=== PATIENT | female | born 1940 | race Caucasian/White ===

== ENCOUNTER 2020-04-16 16:35 | Emergency (ER) | payer MEDICARE, SELFPAY ==
[2020-04-16 16:52] VITALS: BP 145/76; PULSE 64; RESP 18; TEMP 36.6; O2SAT 94; BMI 31.8
--- NOTE | 2020-04-16 19:12 | XRR_ITS ---
PROCEDURE INFORMATION: Exam: XR Right Knee Exam date and time: 04/16/2020 7:57 PM Age: 80 years old Clinical indication: Injury or trauma; Fall; Initial encounter; Blunt trauma; Right; Injury details: PT fell; Prior surgery; Surgery date: 6+ months; Surgery type: Knee replacement; Patient HX: Fell; C/O pain RT knee TECHNIQUE: Imaging protocol: XR Right knee. Views: 3 views. COMPARISON: No relevant prior studies available. FINDINGS: Bones/joints: Patient is status post knee arthroplasty with near anatomical alignment of the prosthesis. No paralleling lucencies about the femoral or tibial component to suggest loosening. No acute fracture or dislocation. Soft tissues: Normal. Other findings: Spacer. XR/XR knee RT 3V* [id number] IMPRESSION: 1. Status post knee arthroplasty. 2. No paralleling lucencies about the femoral or tibial component to suggest loosening. 3. No acute fracture or dislocation.
--- NOTE | 2020-04-16 19:22 | ED_ITS ---
HPI - Extremity Problem General: Chief complaint: Extremity Injury, Lower Stated complaint: back pain Time Seen by Provider: 04/16/20 19:12 Source: patient Mode of arrival: ambulatory Limitations: no limitations History of Present Illness: HPI Narrative: 80-year-old female who states she is been having some low back pain that radiates down her leg on the right side over the last week. States it feels like water running down her leg. She also has a history of knee problems in the past with a joint placement states that her knee is giving out a couple times. She denies any bowel or bladder incontinence and denies any saddle anesthesia. She states her pain is sharp in nature and rates it a 2 out of 10. Denies any worsening or improving factors. Associated symptoms: Deny chest pain, fever(s) or rash Review of Systems Const: Denies: fever(s), chills, body aches or change in appetite Eyes: Denies: blurry vision or eye discomfort ENMT: Denies: throat pain or dental pain Card: Denies: chest pain Resp: Denies: dyspnea GI: Denies: abdominal pain, nausea, vomiting or diarrhea : Denies: dysuria Musc: Denies: neck pain or back pain Skin/Breast: Denies: rash Neuro: Denies: headache(s) Psych: Denies: depression Jose/Lymph: Denies: easy bruising All/Imm: Denies: urticaria PFSH ED PFSH: Medical History Atherosclerosis Atherosclerosis of coronary artery of [place] heart without angina pectoris History of DVT (deep vein thrombosis) History of non-ST elevation myocardial infarction (NSTEMI) HTN (hypertension) Hyperlipidemia Surgical History S/P blepharoplasty S/P cataract extraction S/P cholecystectomy S/P hysterectomy S/P knee replacement S/P lumpectomy of breast S/P shoulder surgery Family History Brother Hypertension Diabetes Mother Cancer Sister Cancer Social History Smoking and tobacco status: former smoker Physical Exam Const: COMMON NORMALS: no acute distress, patient oriented x3 and healthy appearing HENMT: COMMON NORMALS: normocephalic and atraumatic HEAD & SCALP: normocephalic and atraumatic Eye: COMMON NORMALS: Equal, round and reactive pupils present and EOMs intact bilaterally PUPIL: Yes Equal, round and reactive pupils present Neck/C-Spine: COMMON NORMALS: full ROM and supple Chest: COMMONS NORMALS: normal inspection of the chest and normal palpation of entire chest wall Resp: COMMON NORMALS: normal respiratory effort, No retractions, No use of accessory muscles and clear to auscultation bilaterally AUSCULTATION: clear to auscultation bilaterally Cardio: COMMON NORMALS: regular rate, regular rhythm and No murmurs present (Cardio) RATE: regular rate RHYTHM: regular rhythm GI: COMMON NORMALS: Normal to inspection, nondistended, normoactive bowel sounds present, Soft to palpation, non-tender and no masses PALPATION: Yes Soft to palpation Back/Pelvis: OTHER: No midline back tenderness. Patient has no weakness in her lower extremities and no saddle anesthesia. Extremity: COMMON NORMALS: normal to inspection and full ROM Neuro: COMMON NORMALS: patient oriented x3, moves all extremities and no focal motor deficits Psych: COMMON NORMALS: mental status grossly normal, Normal thought process present and cooperative THOUGHT PROCESS: Normal thought process present Skin: COMMON NORMALS: no rashes or lesions noted and no wounds GENERAL SKIN EXAM: no rashes or lesions noted Course Vital Signs: Vital signs: Vital Signs Temperature 97.9 F 04/16/20 16:52 Pulse Rate 73 04/16/20 21:28 Respiratory Rate 14 04/16/20 21:28 Blood Pressure 176/70 04/16/20 21:28 Pulse Oximetry 92 04/16/20 21:28 MDM - Extremity (Nontraumatic) MDM Narrative: Medical decision making narrative: Patient presents with back pain with some signs of sciatica. Patient given Decadron here. CT showed no acute findings she has no signs of cord compression or epidural abscess. She is to follow-up with her PCP in 2 to 3 days and return to ER if worsening. She understands and agrees to this plan. Imaging Data^: ct l spine: Attestation: I personally reviewed and interpreted this imaging study as follows: Radiologist's impression: [address] [address] [address] Scan Report Signed Patient: Flakita Sutherland Unit #: [id number] : 1940 Age/Sex: 80 / F ADM Date: 04/16/20 Loc: ER Room/Bed: Attending Dr: Ordering Provider/Ordering MD: Carmen Salguero MD Date of Service: 04/16/20 Procedure(s): CT lumbar spine wo con* [id number] Accession Number(s): [id number] Report Number: [id number] PROCEDURE INFORMATION: Exam: CT Lumbar Spine Without Contrast Exam date and time: 04/16/2020 8:09 PM Age: 80 years old Clinical indication: Injury or trauma; Fall; Initial encounter; Blunt trauma (contusions or hematomas); Additional info: Pain TECHNIQUE: Imaging protocol: Computed tomography images of the lumbar spine without contrast. Radiation optimization: All CT scans at this facility use at least one of these dose optimization techniques: automated exposure control; mA and/or kV adjustment per patient size (includes targeted exams where dose is matched to clinical indication); or iterative reconstruction. COMPARISON: CR XR lumbar spine min 4V [id number] 03/14/2020 1:42 PM RADIATION DOSE METRICS: Total DLP (mGy-cm): 2238.95 FINDINGS: Vertebrae: The vertebral body stature is maintained. Degenerative anterior subluxation of L4 on L5. Disc space narrowing is severe at L5-S1, moderate at L2-L3, and mild at the other levels. The facets are intact with hypertrophic degenerative changes. L1-L2: At L1-L2 there is a disc bulge. Degenerative facets. Mild left and moderate right foraminal stenosis. Mild central canal stenosis. L2-L3: Disc bulge at L2-L3 with degenerative facets. Mild left and moderate right foraminal stenosis. Mild central canal stenosis. L3-L4: Mild disc bulge at L3-L4 with degenerative facets. Mild left and severe right foraminal stenosis. Severe central canal stenosis. L4-L5: Disc bulge at L4-L5. Degenerative facets. Mild bilateral foraminal stenosis. Moderate central canal stenosis. L5-S1: Small disc bulge at L5-S1. Mild bilateral foraminal stenosis. No central canal stenosis. Sacrum/coccyx: Partial lumbarization of S1. Soft tissues: Unremarkable. CT/CT lumbar spine wo con* [id number] IMPRESSION: 1. No compression fracture or acute finding. 2. Multilevel degenerative changes. ct t spine: Attestation: I personally reviewed and interpreted this imaging study as follows: Radiologist's impression: [facility] [address] [place] [address] CT Scan Report Signed Patient: Flakita Sutherland Unit #: [id number] : 1940 Age/Sex: 80 / F ADM Date: 04/16/20 Loc: ER Room/Bed: Attending Dr: Ordering Provider/Ordering MD: Carmen Salguero MD Date of Service: 04/16/20 Procedure(s): CT thoracic spin wo con* [id number] Accession Number(s): [id number] Report Number: [id number] PROCEDURE INFORMATION: Exam: CT Thoracic Spine Without Contrast Exam date and time: 04/16/2020 8:09 PM Age: 80 years old Clinical indication: Injury or trauma; Fall; Initial encounter; Blunt trauma (contusions or hematomas); Additional info: Pain TECHNIQUE: Imaging protocol: Computed tomography images of the thoracic spine without contrast. Radiation optimization: All CT scans at this facility use at least one of these dose optimization techniques: automated exposure control; mA and/or kV adjustment per patient size (includes targeted exams where dose is matched to clinical indication); or iterative reconstruction. COMPARISON: No relevant prior studies available. RADIATION DOSE METRICS: Total DLP (mGy-cm): 2124.08 FINDINGS: Vertebrae: The vertebral body stature is normal. No compression fracture. Mild degenerative endplate changes in the mid and lower thoracic levels. T1-T2: No significant disc protrusion. No severe spinal canal stenosis. No significant neural foraminal narrowing. T2-T3: No significant disc protrusion. No severe spinal canal stenosis. No significant neural foraminal narrowing. T3-T4: No significant disc protrusion. No severe spinal canal stenosis. No significant neural foraminal narrowing. T4-T5: No significant disc protrusion. No severe spinal canal stenosis. No significant neural foraminal narrowing. T5-T6: No significant disc protrusion. No severe spinal canal stenosis. No significant neural foraminal narrowing. T6-T7: No significant disc protrusion. No severe spinal canal stenosis. No significant neural foraminal narrowing. T7-T8: No significant disc protrusion. No severe spinal canal stenosis. No significant neural foraminal narrowing. T8-T9: No significant disc protrusion. No severe spinal canal stenosis. No significant neural foraminal narrowing. T9-T10: No significant disc protrusion. No severe spinal canal stenosis. No significant neural foraminal narrowing. T10-T11: No significant disc protrusion. No severe spinal canal stenosis. No significant neural foraminal narrowing. T11-T12: No significant disc protrusion. No severe spinal canal stenosis. No significant neural foraminal narrowing. T12-L1: No significant disc protrusion. No severe spinal canal stenosis. No significant neural foraminal narrowing. Other bones/joints: The facets are intact with degenerative changes. Mediastinum: Hiatal hernia. CT/CT thoracic spin wo con* [id number] IMPRESSION: 1. No compression fracture or acute finding. xr knee: Attestation: I personally reviewed and interpreted this imaging study as follows: My impression: no acute abnormality Discharge Plan Discharge Patient Disposition: Home Clinical Impression: Acute pain of right knee Low back pain Qualifiers: Chronicity: chronic Back pain laterality: right Sciatica presence: with sciatica Sciatica laterality: sciatica of right side Qualified Code(s): M54.41 - Lumbago with sciatica, right side Condition: Stable Prescriptions: New Naprosyn 500 mg tablet 500 mg PO BID PRN (Reason: pain) Qty: 20 RF: 0 No Action sertraline 50 mg tablet 50 mg PO DAILY RF: 0 tramadol 50 mg tablet 50 mg PO DAILY RF: 0 docusate sodium [Stool Softener] 100 mg capsule 100 mg PO DAILY PRNRF: 0 diphenhydramine HCl [Benadryl] 25 mg capsule 50 mg PO .HS RF: 0 furosemide [Lasix] 20 mg tablet 20 mg PO DAILY RF: 0 potassium chloride 10 mEq capsule, extended release 10 meq PO DAILY RF: 0 nitroglycerin [Nitrostat] 0.4 mg tablet, sublingual 0.4 mg SUBLINGUAL Q5M PRNRF: 0 amlodipine 10 mg tablet 10 mg PO DAILY 30 Days Qty: 30 RF: 5 clopidogrel [Plavix] 75 mg tablet 75 mg PO DAILY Qty: 90 RF: 3 metoprolol tartrate 50 mg tablet 50 mg PO BID Qty: 180 RF: 3 Discharge Orders: Discharge Order (Routine); Ordered 04/16/20 Ordered By: Carmen Salguero Referrals: Sanjeev Richardson MD [Primary Care Provider] - 1-3 days Discharge Diet: Advance as tolerated Discharge Activity: Resume usual activity Patient Instructions: Acute Low Back Pain (ED) Discharge Date/Time: 04/16/20 21:29 Coding Level of Care Code ED Shipping Assistant for Chg Fwd Exam Comprehensive
[2020-04-16] MEDS: dexamethasone 10 mg/mL INJ IM (19:41)
[2020-04-16] MEDS: ketorolac 30 mg/mL INJ IM (19:49)
[2020-04-16 21:22] VITALS: RESP 14
[2020-04-16] MEDS: morphine 4 mg/mL SDV 1 mL IM (21:22)
[2020-04-16 21:28] VITALS: BP 176/70; PULSE 73; RESP 14; O2SAT 92
== END 2020-04-16 21:29 | disposition home or self-care (01) ==
PROVIDERS: Emergency Provider Emergency Medicine; PCP Family Medicine
DX: M54.41 Lumbago with sciatica, right side (principal); G89.29 Other chronic pain; M25.561 Pain in right knee; Z79.02 Long term (current) use of antithrombotics/antiplatelets; I25.2 Old myocardial infarction; I10 Essential (primary) hypertension; E78.5 Hyperlipidemia, unspecified; Z96.659 Presence of unspecified artificial knee joint
CPT/HCPCS: 12345; 72128; 72131; 73562; 96372; 99281; 99283; J1100; J1885; J2270

== ENCOUNTER 2020-07-12 07:03 | Outpatient (CLI) | payer MEDICARE, SELFPAY ==
[2020-07-12 07:10] VITALS: BMI 33.1
--- NOTE | 2020-07-12 07:12 | NMCV_ITS ---
NM marcel perf SPECT r/s* [id number] Flakita Sutherland Age: 80 Gender: F : 1940 Exam Date: 07/12/2020 08:46 Ordering Phys: Vj Carreno MD ([email or web address]) Technologist: FAREED Hensley Exam Location: [facility] Indications: SHORTNESS OF BREATH STRESS TEST Please see separate stress test report in [facility]any for full findings IMAGE PROTOCOL Rest/Stress 1 Lexiscan Day Radiopharmaceutical Dose (mCi) Administration Site Administered by Rest: Tc-99m 10.3 IV FAREED Hale Sestamibi Stress:Tc-99m 32.3 IV FAREED Hale Sestamibi Rest: 12-Jul-2020 60 Discovery 630 Stress: 12-Jul-2020 30 Discovery 630 0.4mg Lexiscan. Supine position only as patient was unable to lay prone. SPECT RESULTS Technical Quality: Good Raw Data Analysis: Breast attenuation Image Corrections: No attenuation or motion correction applied Summed Stress Score: 6 Summed Rest Score: 6 Summed Difference Score: 1 PERFUSION FINDINGS Small area of decreased tracer uptake was noted in the mid anterolateral and apical anterior region, with some reversibility in the anterolateral region. Small to moderate area of decreasesed uptake in the mid inferolateral, apical lateral and LV apex with no significant reversibility FUNCTIONAL RESULTS (calculated via Gated SPECT) Stress Image LV EF (%): 75 Stress EDV (mL):89 TID: 0.96 Stress ESV (mL):22 FUNCTIONAL FINDINGS: Segmental wall motion analysis revealing no gross wall motion normalities. IMPRESSIONS 1. Myocardial perfusion imaging revealing a small area of reversible defect in the mid anterolateral region, suggestive of ischemia in the distribution of the left circumflex artery. 2. Normal LV ejection fraction of 75%. 3. LV wall motion analysis revealing no gross wall motion normalities. 4. Normal LV volume. No similar previous studies are available for comparison Dr Vj Carreno MD FACC (Electronically Signed) Final Date: 12 July 2020 15:50 S
--- NOTE | 2020-07-12 07:12 | ECG_ITS ---
[facility] Test Date: 2020-07-12 Pat Name: Flakita Sutherland Department: Room: Gender: Female Director Of Nursing: : 1940 Requested By: Vj Carreno Order Number: [id number] Lenore MD: Vj Carreno M.D. Interpretive Statements NAME OF STUDY: LEXISCAN SESTAMIBI STRESS TEST INDICATION: ASHD PROCEDURE: At the baseline, the EKG revealed sinus bradycardia with a rate of 59 bpm. The baseline blood pressure was 144/60 mm Hg with a heart rate of 59 beats/min. Lexiscan was infused over a period of 20 seconds. A total of 0.4 milligrams of Lexiscan was infused. The stress phase was continued for a total of 5 minutes. Heart rate at the end of the stress phase was 69 with a blood pressure 147/53. The EKG at the peak infusion revealed no significant changes. Sestamibi was injected 20 seconds after the Lexiscan infusion. Blood pressure at the end of the recovery phase was 134/55 with a heart rate of 66 per minute. CONCLUSION: 1. No significant EKG changes with the LexiScan infusion 2. No LexiScan induced chest pain or cardiac arrhythmia 3. Normal blood pressure and heart rate response 4. Sestamibi/sestamibi perfusion scan pending; see separate report. Electronically Signed On 07-13-2020 20:49:44 CDT by Vj Carreno M.D. [email or web address]
--- NOTE | 2020-07-12 09:33 | SUR.PREOP ---
Patient reports no pain or discomfort prior to the start of the procedure.
[2020-07-12] MEDS: regadenoson 0.4 Mg/5 ml Syringe IVP (10:00)
[2020-07-12 10:07] VITALS: BP 122/78; PULSE 65
== END 2020-07-12 07:04 | disposition home or self-care (01) ==
LOC: CDL 07:05
PROVIDERS: PCP Family Medicine; Visit Provider Internal Medicine Cardiovascular Disease
DX: R06.02 Shortness of breath (principal); I25.10 Atherosclerotic heart disease of native coronary artery without angina pectoris
CPT/HCPCS: 78452; 93017; A9500; J2785

== ENCOUNTER → 2020-07-16 16:25 | Outpatient (BNVA) | payer MEDICARE, SELFPAY | PROVIDERS: PCP Family Medicine; Visit Provider Internal Medicine Cardiovascular Disease | DX: R94.39 Abnormal result of other cardiovascular function study (principal); Z79.01 Long term (current) use of anticoagulants; R06.02 Shortness of breath; I25.10 Atherosclerotic heart disease of native coronary artery without angina pectoris | CPT/HCPCS: 80048; 85025; 86850; 86900; 87635 ==

== ENCOUNTER 2020-07-24 06:01 | Day surgery (SDC) | payer MEDICARE, SELFPAY ==
[2020-07-19 13:11] VITALS: BMI 32.4
[2020-07-24] VITALS (27 sets, daily range): BP systolic 70–185; BP diastolic 52–118; PULSE 65–82; RESP 11–28; TEMP 36.6–36.8; O2SAT 88–96
--- NOTE | 2020-07-24 07:00 | XACV_ITS ---
Ht: 160 cm Wt: 83 kg BSA: 1.95 m2 Gender: Female : 1940 Any Known Allergies: Other Exam Priority: Routine Procedure(s): Procedure Description: Diagnostic procedure Procedure Description: Left Heart Catheterization Procedure Description: Left ventriculography Procedure Description: Coronary Angiography Diagnostic Cath Status: Elective Diagnostic Findings * The left main is a medium caliber vessel with a 20% distal narrowing. * The left anterior descending artery is a medium caliber vessel which appears to wrap around the LV apex. The mid LAD was found to have around 50% tubular narrowing. Proximal to mid LAD was found to have mild to moderate diffuse calcification. No other significant stenotic lesions were noted. The first diagonal branch was found to have an ostial narrowing of around 60%. * The left circumflex artery is a medium caliber vessel with some diffuse ectasia in the proximal segment. The first obtuse marginal branch was found to have an ostial around 70% lesion. This is a small to medium caliber vessel. The mid and distal circumflex artery was found to have minimal intimal irregularities with no significant stenotic lesions. * The right coronary artery is a medium to large caliber dominant vessel which was found to have a stented segment proximally involving the ostium. The stent appears to be jutting into the lumen of the aorta slightly. Beyond the stented segment, there was mild to moderate diffuse disease in the proximal to mid segment of the artery. Distal artery was found to have minimal intimal irregularities.. Conclusions 1. No significant disease noted in the Left Main, LAD, Circumflex, or RCA coronary arteries. 2. Normal left ventricular systolic function. Ejection fraction of 55%. 3. This is an 80-year-old white female with a history of hypertension, dyslipidemia, coronary artery disease, status post PCI of the right coronary artery in March 2018, is now presenting with complaints of chest pain and fatigue. She had a myocardial perfusion imaging which revealed a small area of reversible defect in the mid anterolateral region, suggestive of ischemia in the distribution of the left circumflex artery. In view of the patient's ongoing atypical symptoms and also the preoperative status, in order to further evaluate her coronary status, a cardiac catheterization was recommended. Patient underwent left heart catheterization with a left and right coronary angiogram and LV angiogram today. The findings are as follows. 4. Around 20% distal left main disease. 5. 50% tubular lesion in the mid LAD. 6. 60% stenosis in the ostium of the first diagonal branch of the 7. left anterior descending artery. 8. Around 9. 70% ostial narrowing 10. in the 11. small to medium caliber first obtuse marginal branch of the left circumflex artery. Mild to moderate disease in the other vessels. Normal LV ejection fraction of 65%. LVEDP of 15 mmHg.. Recommendations * Continue current medical management and risk factor modification. Diagnostic RX Recommendation: medical therapy and/or counseling LV EDP: 15 mmHg Ventriculography Ejection Fraction: 65.0 % Left Ventriculography Findings: * The LV gram was performed in the NELSON view. The LV cavity of normal size. There was no filling defects. LV ejection fraction was around 65%. No significant mitral valve prolapse or mitral regurgitation. LVEDP was 15 mmHg. Pressures Phase:Rest AO : 202 / 69 ( 112 ) @ 10:45:00 AM 145 / 63 ( 95 ) @ 10:48:00 AM 155 / 70 ( 107 ) @ 10:55:00 AM 166 / 51 ( 95 ) @ 11:00:00 AM LV : 174 / -13 / @ 10:59:00 AM 183 / -7 / @ 10:59:00 AM 175 / -3 / @ 11:00:00 AM Clinical Evaluation EBL: 5mL-10mL Procedural Details Procedure Consent Obtained. Pre-Procedure Time Out. Identified patient by full name and date of as verbalized by the patient/guarantor. Does the consent match the physician's order: Yes. Accurate & Complete Informed Consent: Yes. Inpatient/Outpatient History & Physical on Chart: Yes. If H&P is completed, is and addenduem needed: N/A; If yes, is the addendum complete: N/A. Visualize and Verify Site with Patient/Guarantor: N/A. Relevant Radiology Images available: Yes. Pre-op teaching completed and patient verbalized understanding. The risks, benefits, and alternatives of sedation and/or procedure were discussed by physician. The patient agrees to continue. Procedure started. Correct patient, site and procedure confirmed by cath team. PERRLA. Strong, equal hand construction services technician bilaterally. Lungs clear x 5 lobes. IV Site on Arrival: 20 gauge in the left anticubital. IV Fluids: 0.9% NaCl at KVO. 0 mL infused prior to laboratory operations coordinator. Oxygen started at 2liters/min via nasal canula. right groin was prepped with chloroprep then draped in the usual sterile fashion. right radial was prepped with chloroprep then draped in the usual sterile fashion. Physician notified. Baseline sample Acquired. HR: 80 BPM. Equipment: 6F - Radial. Cardiac Cath Pack. Adpeps Manifold Kit Model BT 2000. Heparinized Saline (2 units/mL), 1000 mL bag. Physician arrived. Physician scrubbed in. Immediate Pre-Procedure Time Out. Correct Patient: Yes; Correct Procedure: Yes; Correct Site: Yes; Correct Patient Position: Yes; Correct Supplies: Yes; Dried Flammable Prep: Yes; Blood Products Available: No;. Lidocaine 1% infiltrated to the right groin. Arterial access obtained with micropuncture set. A 5 [place] citizen JL4 catheter in over wire. Multiple views taken of left coronary artery. Catheter out. A 5 [place] citizen JR4 catheter in over wire. Catheter out. A 5 [place] citizen 3DRC catheter in over wire. Multiple views taken of right coronary artery. Catheter out. A 5 [place] citizen Angled Pig catheter in over wire. Dr. Latif called. EDP Sample taken: LV 174/-14,13; HR: 84 BPM; SpO2: 100%. EDP Sample taken: LV 183/-8,15; HR: 72 BPM; SpO2: 99%. LV gram performed in NELSON @ 10 mL/second for a total of 30 mL. EDP Sample taken: LV 175/-4,19; HR: 87 BPM; SpO2: 100%. Pullback taken: LV Off; AO Off; Mean: , Peak to Peak: , SEP: ; HR: 75 BPM; SpO2: 100%. Catheter out. Side port of sheath flushed with Normal Salin to maintain patency. Patient's family updated. [facility] Clinical Fraility Score: 4: Vulnerable. Scaffold Builder Indications: Suspected CAD. Chest Pain Symptom Assessment: Atypical Angina. Cardiovascular Instability: No. Post-op diagnosis: patent stent moderate to severe disease. Dr. Latif arrived. A Suture was successful obtaining hemostatsis at the Femoral artery insertion site. Sheath(s) sutured into position with 2-0 silk and sterile 4x4's and Op-site applied over the site. No oozing or signs and symptoms of hematoma noted. Arterial sheath flushed and connected to tranducer and pressure bag with heparinized saline. Post Procedure: Pulses reassessed and unchanged. PERRLA. Strong, equal hand construction services technician bilaterally. No VTE prophylaxis required. Medication's Wasted: Lidocaine 1% = 4 mL. Medication's Wasted: Heparin = 2500 units. Medication's Wasted: Nitro = 50 mg. Medication's Wasted: Verapamil = 5 mg. Total IV fluids: 150 mL. Fluoro: 77:00. Contrast type used: Omnipaque 300 mgI/mL, 500 mL bottle. [id number]. Complications: none. Estimated blood loss: 5mL-10mL. Procedure completed. Vital chart was stopped. Patient transferred by bed to 1st floor. Access Site Site: Femoral artery Sheath Size: 5 Fr Hemostasis Method: Suture Hemostasis Success: Successful Procedure Medications Start: 4:26 PM Stop: 4:26 PM Medication: Fentanyl Amount: 50 mcg Route: I.V. Start: 4:28 PM Stop: 4:28 PM Medication: Versed Amount: 1 mg Route: I.V. Start: 4:49 PM Stop: 4:49 PM Medication: Heparin Amount: 1500 units Route: I.V. Start: 4:49 PM Stop: 4:49 PM Medication: Fentanyl Amount: 50 mcg Route: I.V. Start: 5:11 PM Stop: 5:11 PM Medication: Fentanyl Amount: 50 mcg Route: I.V. Start: 4:58 PM Stop: 4:58 PM Medication: Versed Amount: 1 mg Route: I.V. Start: 4:58 PM Stop: 4:58 PM Medication: Fentanyl Amount: 50 mcg Route: I.V. I, the attending physician, have reviewed and verified all procedure medications. Yes, all medications given per verbal order History/Risk Factors Hypertension: Yes Tobacco Use: Former Prior Interventions PCI: Yes Report Signatures Finalized by Dr Vj Carreno MD [facility] on 07/24/2020 06:12 PM
--- NOTE | 2020-07-24 16:04 | PC.NURSE ---
Patient transported to heart label paster on carrier.
--- NOTE | 2020-07-24 16:21 | W.PM.OPSUD ---
Surgery/Procedure H&P Update DATE OF PROCEDURE: July 24, 2020 DATE H&P PERFORMED: 07/16/20 H&P UPDATE INFORMATION: I have reviewed H&P completed within last 30 days, I have examined patient prior to procedure and No changes to prior documentation PREOP DIAGNOSIS: ASHD/abnormal myocardial perfusion imaging PLANNED PROCEDURE: Operation Date: 07/24/20 07:00 Proposed Procedures p left heart cath(Left) - Vj Carreno MD PATIENT REASSESSED PRIOR TO SEDATION, WITH NO CHANGE NOTED: Yes PHYSICAL EXAM: alert, oriented x 3, clear to auscultation bilaterally and regular rate & rhythm AIRWAY EVAL/ANESTHESIA PLAN: normal airway, see other exam findings, ASA III, Risks, benefits & alternatives of sedation and/or procedure discussed and Patient agrees to continue as planned
--- NOTE | 2020-07-24 19:55 | PC.NURSE ---
Sheath removed at this time cath intact min bleeding vital sign stable throughout patient tolerated well bandage applied patient educated on the need for strict bed rest and close monitoring of vital signs patient verbalized understanding was made comfortable with pillows and left to rest.
[2020-07-24] MEDS: diphenhydrAMINE 25 mg Capsule 50 MG PO (20:25)
[2020-07-24] MEDS: TRAMadol 50 mg Tablet 100 MG PO (22:32)
[2020-07-25] VITALS (16 sets, daily range): BP systolic 110–141; BP diastolic 58–62; PULSE 66–80; RESP 14–27; TEMP 36.6–36.8; O2SAT 90–92
--- NOTE | 2020-07-25 02:17 | PC.NURSE ---
NURSING NOTE: POST CARDIAC CATH CARE/6 HOUR CHECK PT ALERT AND ORIENTED X4. MOVES ALL EXTREMITIES AND FOLLOWS ALL COMMANDS. RT GROIN CATH SITE CLEAN, DRY, AND INTACT, NO DRAINAGE NOTED. SITE SOFT TO PALP, NO C/O PAIN. PT WALKED FULL LENGTH OF HALLWAY AT THIS TIME WITHOUT DIFFICULTY. NO DRAINAGE OR ABNORMALITIES AT SITE POST WALK. VSS. ALL VSS AND ASSESSMENTS CHARTED.
[2020-07-25] MEDS: FUROsemide 20 mg Tablet PO (09:11)
[2020-07-25] MEDS: gabapentin 100 mg Capsule PO (09:11)
[2020-07-25] MEDS: metoprolol tartrate 50 mg Tablet PO (09:11)
[2020-07-25] MEDS: potassium chloride ER 10 mEq Tablet PO (09:11)
[2020-07-25] MEDS: clopidogrel 75 mg Tablet PO (09:12)
[2020-07-25] MEDS: amlodipine 10 mg Tablet PO (09:12)
== END 2020-07-25 10:12 | disposition home or self-care (01) ==
LOC: CCL 06:17 → CSU 15:27 → CCL 07-25 07:35 → CSU 07-25 07:48
PROVIDERS: Internal Medicine Cardiovascular Disease; PCP Family Medicine; Visit Provider Internal Medicine Cardiovascular Disease
DX: I25.10 Atherosclerotic heart disease of native coronary artery without angina pectoris (principal); I10 Essential (primary) hypertension; E78.5 Hyperlipidemia, unspecified; Z87.891 Personal history of nicotine dependence; Z86.718 Personal history of other venous thrombosis and embolism
CPT/HCPCS: 12345; 93452; C1769; C1887; C1894; J1644; J2250; J3010; J3490; Q9967

== ENCOUNTER → 2020-07-30 11:21 | Outpatient (BNVA) | payer MEDICARE, SELFPAY | PROVIDERS: PCP Family Medicine; Visit Provider Nurse Practitioner Family | DX: I25.10 Atherosclerotic heart disease of native coronary artery without angina pectoris (principal); Z09 Encounter for follow-up examination after completed treatment for conditions other than malignant neoplasm | CPT/HCPCS: 80048 ==

== ENCOUNTER → 2021-02-12 14:58 | Outpatient (BNVA) | payer MEDICARE, SELFPAY | PROVIDERS: PCP Family Medicine; Referring Provider Family Medicine; Visit Provider Specialist | DX: R20.0 Anesthesia of skin (principal); G62.9 Polyneuropathy, unspecified; G56.03 Carpal tunnel syndrome, bilateral upper limbs; Z87.891 Personal history of nicotine dependence | CPT/HCPCS: 95913 ==

== ENCOUNTER 2021-07-01 15:13 | Outpatient (CLI) | payer MEDICARE, SELFPAY ==
--- NOTE | 2021-07-01 15:31 | XR_ITS ---
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 Moderate narrowing of the intervertebral disc spa lalit L1-L4. Significant narrowing of the L5-S1 disc space. Pedicle screws and interbody fusion device at L4-L5. Surgical appliances are in proper position and alignment. XR/XR lumbar spine 2-3V* [id number] IMPRESSION: Postoperative lumbar spine. Multilevel degenerative spondylosis.
== END 2021-07-01 15:14 | disposition home or self-care (01) ==
LOC: RAD 15:22
PROVIDERS: PCP Family Medicine; Visit Provider Surgery
DX: M54.16 Radiculopathy, lumbar region (principal); M47.816 Spondylosis without myelopathy or radiculopathy, lumbar region
CPT/HCPCS: 72100

== ENCOUNTER → 2021-07-10 14:11 | Outpatient (BNVA) | payer MEDICARE, SELFPAY | PROVIDERS: PCP Family Medicine; Referring Provider Family Medicine; Visit Provider Specialist | DX: G60.9 Hereditary and idiopathic neuropathy, unspecified (principal); Z87.891 Personal history of nicotine dependence | CPT/HCPCS: 36415; 82607; 82746; 83921; 84260; 84443; 85651; 86140; 86431; 99204 ==

== ENCOUNTER 2021-07-10 16:22 | Outpatient (CLI) | payer MEDICARE, SELFPAY ==
[2021-07-10 17:52] LABS: Folate Level 9.6 ng/mL (4.8-37.3)
[2021-07-10 18:09] LABS: C Reactive Protein 4.2 mg/L (0.0-4.9); Thyroid Stimulating Hormone 1.22 uIU/mL (0.27-4.20); Vitamin B12 207 pg/mL (232-1245)
[2021-07-11 16:44] LABS: Erythrocyte Sedimentation Rate 39 mm/hr (0-15)
[2021-07-16 19:53] LABS: Methylmalonic Acid 302 nmol/L (87-318)
== END 2021-07-10 16:23 | disposition home or self-care (01) ==
LOC: LAB 16:28
PROVIDERS: PCP Family Medicine; Visit Provider Specialist
DX: G60.9 Hereditary and idiopathic neuropathy, unspecified (principal)
CPT/HCPCS: 36415; 82607; 82746; 83921; 84260; 84443; 85651; 86140; 86431

== ENCOUNTER → 2022-03-12 11:29 | Outpatient (BNVA) | payer MEDICARE, SELFPAY | PROVIDERS: PCP Family Medicine; Visit Provider Internal Medicine Cardiovascular Disease | DX: I25.10 Atherosclerotic heart disease of native coronary artery without angina pectoris (principal); E78.2 Mixed hyperlipidemia; Z86.718 Personal history of other venous thrombosis and embolism; I15.0 Renovascular hypertension; Z87.891 Personal history of nicotine dependence; Z79.01 Long term (current) use of anticoagulants; I25.2 Old myocardial infarction | CPT/HCPCS: 99214 ==

== ENCOUNTER → 2022-11-19 13:53 | Outpatient (BNVA) | payer MEDICARE, SELFPAY | PROVIDERS: PCP Family Medicine; Visit Provider Internal Medicine Cardiovascular Disease | DX: I25.10 Atherosclerotic heart disease of native coronary artery without angina pectoris (principal); E78.2 Mixed hyperlipidemia; I15.0 Renovascular hypertension; Z86.718 Personal history of other venous thrombosis and embolism; Z87.891 Personal history of nicotine dependence | CPT/HCPCS: 99214 ==

== ENCOUNTER → 2023-05-13 12:59 | Outpatient (BNVA) | payer MEDICARE, SELFPAY | PROVIDERS: PCP Family Medicine; Referring Provider Family Medicine; Visit Provider Specialist | DX: G56.03 Carpal tunnel syndrome, bilateral upper limbs (principal); M65.332 Trigger finger, left middle finger | CPT/HCPCS: 73110; 99204 ==

== ENCOUNTER → 2023-05-27 14:41 | Outpatient (BNVA) | payer MEDICARE, SELFPAY | PROVIDERS: PCP Family Medicine; Visit Provider Internal Medicine Cardiovascular Disease | DX: R07.9 Chest pain, unspecified (principal); I25.10 Atherosclerotic heart disease of native coronary artery without angina pectoris; E78.2 Mixed hyperlipidemia; Z86.718 Personal history of other venous thrombosis and embolism; I15.0 Renovascular hypertension; Z87.891 Personal history of nicotine dependence; I10 Essential (primary) hypertension | CPT/HCPCS: 93005; 99214 ==

== ENCOUNTER → 2023-06-04 13:05 | Outpatient (BNVA) | payer MEDICARE, SELFPAY | PROVIDERS: PCP Family Medicine; Visit Provider Nurse Practitioner Family | DX: Z01.818 Encounter for other preprocedural examination (principal); G56.03 Carpal tunnel syndrome, bilateral upper limbs | CPT/HCPCS: 36415; 80053; 81001; 85025; 99214 ==

== ENCOUNTER 2023-06-19 06:47 | Day surgery (SDC) | payer MEDICARE, SELFPAY ==
[2023-06-18 12:25] VITALS: BMI 30.6
[2023-06-19] VITALS (7 sets, daily range): BP systolic 123–147; BP diastolic 54–77; PULSE 62–68; RESP 12–16; TEMP 36.4–37.1; O2SAT 86–95
[2023-06-19] MEDS: acetaminophen 1,000 MG/100 ML PIGGYBACK 400 MG IV (08:12)
[2023-06-19] MEDS: sodium chloride 0.9% 1,000 ML 30 ML IV (08:13)
--- NOTE | 2023-06-19 08:13 | ANES.PREANE2 ---
Pre-Anesthetic Assessment Height/Weight: Height 1.6 m Weight 78.471 kg Temp Pulse Resp BP Pulse Ox O2 Del Method 98.8 F 67 16 147/65 92 Room Air 06/19/23 07:44 06/19/23 07:44 06/19/23 07:44 06/19/23 07:44 06/19/23 07:44 06/19/23 07:44 Preop Diagnosis: Right CTS Operation Date: 06/19/23 08:30 Proposed Procedures p Right CARPAL TUNNEL RELEASE [id number],G56.00(Right) - Cassie Benavides MD Familial anesthetic complications: N/V Was Beta Mohini taken within 24 hours: Yes Was Clonidine taken within 24 hours: N/A Last intake: Intake Last Liquid Date 06/18/23 Last Liquid Time 22:00 Last Solid Date 06/18/23 Last Solid Time 22:00 Social No alcohol and No tobacco Exam alert, oriented x 3, clear to auscultation bilaterally and regular rate & rhythm Airway Submandibular: within normal limits Cervical ROM: within normal limits Mallampati: Class III Dentition: false and partials History/ROS No significant history except as noted and No significant complaints Pulmonary Cough CV/HEM Coronary Artery Disease, Deep Vein Thrombosis (40 years ago) and Myocardial Infarction (No intervention) Taking Plavix due to stent placed to RCA. Has been unable to get Plavix refilled in a month. Has never needed to use nitroglycerin None reported Hepatic None reported GI None reported Metabolic Hyperlipidemia Musc/skel Lower Back Pain (Had back surgery) and Osteoarthritis/DJD Neuropsych Neuropathy Anesthetic Plan ASA status: 3 Anesthesia: Anesthesia Evaluation, General and MAC Risk of > 500 ml blood loss (7ml/kg in children): No Medications/Allergies Home Medications Medication Instructions Recorded Confirmed Last Taken Type diphenhydramine HCl 25 mg capsule 50 mg PO .HS 01/02/20 06/18/23 Unknown History (Benadryl) sertraline 50 mg tablet 50 mg PO DAILY 01/02/20 06/18/23 06/18/23 History tramadol 50 mg tablet 100 mg PO TID PRN Pain 07/10/21 06/18/23 06/18/23 History clopidogrel 75 mg tablet (Plavix) 75 mg PO DAILY #90 tabs 11/21/21 06/18/23 05/28/23 Rx nortriptyline 25 mg capsule 25 mg PO DAILY 03/12/22 06/18/23 06/18/23 History meclizine 25 mg tablet (Dramamine 25 mg PO DAILY PRN Dizziness 11/04/22 06/18/23 06/18/23 History (meclizine)) nystatin 100,000 unit/gram topical 1 applic topical TID PRN skin 11/04/22 06/18/23 06/18/23 Rx powder yeast #30 grams furosemide 20 mg tablet See Rx Instructions .Route 02/25/23 06/18/23 06/18/23 Rx .COMPLEX #90 tabs CBD 10 oil PO 05/27/23 06/04/23 Unknown History amlodipine 10 mg tablet See Rx Instructions .Route 06/02/23 06/18/23 06/18/23 Rx .COMPLEX #90 tabs nitroglycerin 0.4 mg sublingual 0.4 mg sublingual Q5M PRN Chest 06/02/23 06/18/23 Unknown Rx tablet (Nitrostat) Pain #30 tabs metoprolol tartrate 50 mg tablet 50 mg PO BID 06/18/23 06/18/23 06/19/23 History ropinirole 0.5 mg tablet 0.5 mg PO DAILY 06/18/23 06/18/23 06/18/23 History Allergies Allergy/AdvReac Type Severity Reaction Status Date / Time aspirin [From Percodan] Allergy Unknown Unknown Verified 06/18/23 12:19 codeine Allergy Unknown Unknown Verified 06/18/23 12:19 hydrocodone Allergy Unknown Unknown Verified 06/18/23 12:19 Iodinated Contrast Media Allergy Unknown Unknown Verified 06/18/23 12:19 atorvastatin [From Lipitor] Allergy Abdominal Verified 06/18/23 12:19 pain Current Medications Generic Name Dose Route Start Last Admin Trade Name Freq PRN Reason Stop Dose Admin Sodium Chloride 1,000 mls @ 30 mls/hr 06/19/23 07:30 06/19/23 08:13 Sodium Chloride 0.9% IV 06/20/23 07:29 30 mls/hr .Q24H TERRY Administration PFSH Anesthesia Medical History Abnormal nuclear stress test Atherosclerosis Atherosclerosis of coronary artery of [place] heart without angina pectoris History of DVT (deep vein thrombosis) In both her legs and arms; uncertain of why she had this. History of non-ST elevation myocardial infarction (NSTEMI) HTN (hypertension) Hyperlipidemia No pertinent past medical history neghx:dm,thyroid,pe PCP: Sanjeev Richardson Surgical History H/O breast biopsy (~1997) Right breast-- benign H/O coronary angiogram (~03/31/18) reports heart stent-- she is on plavix Hx of spinal surgery S/P blepharoplasty S/P cataract extraction S/P cholecystectomy (~1969) S/P hysterectomy (~1968) Exploratory laparotomy which resulted in ALEX. Ovaries spared. Performed in [place]. S/P knee replacement 2011--left knee 2012--right knee S/P shoulder surgery (~2016) Dr. Suazo Family History Brother Hypertension Diabetes Cancer Chronic kidney disease (CKD) Mother Lung disease Breast cancer Sister Colon cancer Denies family history of Ovarian cancer CAD (coronary artery disease) Clotting disorder Dementia Suicide Anesthesia complication Bleeding disorder Uterine cancer Stroke Social History Smoking and tobacco status: former smoker Second hand smoke exposure: No Alcohol intake: never Substance/Drug Use: never Data Anesthesia Cardiac Studies: Sestamibi Stress Test (Cardiology) 07/12/20
--- NOTE | 2023-06-19 08:14 | P.HPUD_ITS ---
Surgery/Procedure H&P Update DATE OF PROCEDURE: June 19, 2023 DATE H&P PERFORMED: 06/04/23 H&P UPDATE INFORMATION: I have reviewed H&P completed within last 30 days, I have examined patient prior to procedure, No changes to prior documentation and H&P is in [facility] EMR on date indicated PLANNED PROCEDURE: Operation Date: 06/19/23 08:30 Proposed Procedures p Right CARPAL TUNNEL RELEASE [id number],G56.00(Right) - Cassie Benavides MD Related Problem List Diagnoses (1) Right carpal tunnel syndrome:
[2023-06-19] MEDS: ceFAZolin 2,000 MG in sodium chloride 0.9% (plus) 50 ML 100 MG IV (08:31)
[2023-06-19] MEDS: BUPivacaine 0.5% INJ 30 mL INJECTION (08:59)
--- NOTE | 2023-06-19 09:47 | P.OP_ITS ---
Operative Report Date of procedure: June 19, 2023 Pre-op diagnosis: Right carpal tunnel syndrome Post-op diagnosis: Right carpal tunnel syndrome Post-op findings: Significant compression across the carpal canal with narrowing of the median nerve and purplish discoloration Procedure done: Right carpal tunnel release Surgeon: Cassie Benavides MD Anesthesia: MAC (With local, ASA 3) Estimated blood loss (mL): 2 Tourniquet time (min): 15 (At 250 mmHg) IV fluids (mL): 600 Urine output (mL): 0 (No Roman) Complications: None Condition: stable Disposition: PACU (Then return to same-day surgery for discharge to home) Brief History: This 83-year-old woman presented to the office where she was seen by Andres Cohen, nurse practitioner. She saw me in April, and noted that her wrist pain has been going on for over a year but worsening over the prior 6 months. She had a burning sensation radiating to her shoulder on the left and elbow on the right. She had previous nerve conduction study in January 2021. She was ad vised to receive cardiac clearance, she then return to the office following cardiac clearance. As noted above, she was seen by the nurse practitioner. Consents were signed and questions were answered. Procedure: The patient was brought to the operating theater.? Patient had MAC anesthesia with local supplementation, ASA 3, which was well-tolerated.? The tourniquet was elevated to 250 mmHg for a total tourniquet time of 15 minutes. The patient was also given Ancef 2 g preoperatively. The arm was then prepped and draped with DuraPrep in usual fashion with the arm draped free. A surgical pause was performed. At the time, the surgical pause, we confirmed the site and side of surgery. We also confirmed the patient's identity, appropriate and timely administration of preoperative antibiotics and preoperative surgical markings. An incision was then made along the thenar crease. The incision crossed the wrist joint in a curvilinear fashion. Dissection continued through skin and soft tissues using a scalpel. The palmaris longus was identified along with the transverse carpal ligament. Each of these was released carefully to avoid injury to the median nerve. We were able to dissect gently into the carpal canal which was noted to be quite tight with significant compression across the median nerve. The nerve was visualized and was an hourglass shape with purplish discoloration. The canal was subsequently palpated to assure there was no bony encroachment upon the canal. There was a quite thickened fibrous tissue within the canal, and this was opened longitudinally as well. The canal was then palpated distally and proximally to assure that my small finger was passed easily without impingement. Finding this to be so, attention was directed to closure. The wound was irrigated with ropivacaine plain. It was then closed with 3-0 nylon in an interrupted mattress fashion. Sterile dressing was then placed consisting of Dermabond, OpSite, fluffed fluffs, soft roll, and an Rupert wrap. The tourniquet was released after 17 minutes. There were no complications. There were no specimens. The procedure was well tolerated. Plan is the patient will be discharged home. Related Problem List Diagnoses (1) Right carpal tunnel syndrome:
--- NOTE | 2023-06-19 10:04 | SUR.PHASEII ---
RIGHT ARM ELEVATED ON A PILLOW. ROM,SENSATION, AND CAP REFILL RIGHT FINGERS.
--- NOTE | 2023-06-19 13:31 | ANE.PACU2 ---
Inpatient post-anesthesia follow up: Airway intact: Yes Vital signs: Temperature 97.9 F Pulse Rate 66 Respiratory Rate 16 Blood Pressure 123/54 Pulse Oximetry 92 Oxygen Delivery Me thod Room Air Oxygen Flow Rate 2 Fraction of Inspir ed Oxygen Hydration adequate: Yes Nausea and vomiting: No Pain level: 2 Mental status: Baseline
== END 2023-06-19 11:00 | disposition home or self-care (01) ==
PROVIDERS: PCP Family Medicine; Visit Provider Specialist
PROC: (CPT 64721; principal; 2023-06-19 08:20)
DX: G56.01 Carpal tunnel syndrome, right upper limb (principal); I25.10 Atherosclerotic heart disease of native coronary artery without angina pectoris; Z86.718 Personal history of other venous thrombosis and embolism; I25.2 Old myocardial infarction; Z79.02 Long term (current) use of antithrombotics/antiplatelets; E78.5 Hyperlipidemia, unspecified; Z87.891 Personal history of nicotine dependence
CPT/HCPCS: 64721; 97760; J0131; J0690; J2405; J2704; J3010; J3490; J7030; L3908

== ENCOUNTER → 2023-07-06 09:15 | Outpatient (BNVA) | payer MEDICARE, SELFPAY | PROVIDERS: PCP Family Medicine; Visit Provider Nurse Practitioner | DX: Z98.890 Other specified postprocedural states (principal); G56.01 Carpal tunnel syndrome, right upper limb | CPT/HCPCS: 99024 ==

== ENCOUNTER → 2023-07-13 15:01 | Outpatient (BNVA) | payer MEDICARE, SELFPAY | PROVIDERS: PCP Family Medicine; Visit Provider Nurse Practitioner | DX: G56.02 Carpal tunnel syndrome, left upper limb (principal); M65.332 Trigger finger, left middle finger | CPT/HCPCS: 99214 ==

== ENCOUNTER 2023-07-17 05:45 | Day surgery (SDC) | payer MEDICARE, SELFPAY ==
--- NOTE | 2023-07-17 07:04 | P.HPUD_ITS ---
Surgery/Procedure H&P Update DATE OF PROCEDURE: July 17, 2023 DATE H&P PERFORMED: 07/13/23 H&P UPDATE INFORMATION: I have reviewed H&P completed within last 30 days, I have examined patient prior to procedure, No changes to prior documentation and H&P is in [facility] [place] on date indicated CHANGES TO PREVIOUS DOCUMENTATION: When patient was seen for preoperative visit, she also complained of significant left long finger triggering. This was added to her surgical consent and discussion of surgery. Consents were signed and questions were answered at that time. PLANNED PROCEDURE: Operation Date: 07/17/23 07:00 Proposed Procedures p Left Carpal Tunnel Release(Left) - Cassie Benavides MD Left long finger trigger release of digit Related Problem List Diagnoses (1) Carpal tunnel syndrome, left: (2) Trigger finger, left middle finger:
[2023-07-17] MEDS: CELEcoxib 200 mg Capsule 400 MG PO (07:13)
[2023-07-17] MEDS: acetaminophen 1,000 MG/100 ML PIGGYBACK 400 MG IV (07:13)
[2023-07-17] MEDS: sodium chloride 0.9% 1,000 ML 30 ML (07:16)
--- NOTE | 2023-07-17 07:20 | ANES.PREANE2 ---
Pre-Anesthetic Assessment Height/Weight: Height 1.6 m O2 Del Method Room Air 07/17/23 06:18 Operation Date: 07/17/23 07:00 Proposed Procedures p Left Carpal Tunnel Release(Left) - Cassie Benavides MD Last intake: Intake Last Liquid Date 07/16/23 Last Liquid Time 22:00 Last Solid Date 07/16/23 Last Solid Time 22:00 Social No tobacco (Former) Airway Submandibular: within normal limits Cervical ROM: within normal limits Pulmonary Chronic Obstructive Pulmonary Disease CV/HEM Coronary Artery Disease (RCA Stent ) GI None reported Musc/skel Osteoarthritis/DJD Anesthetic Plan ASA status: 3 Anesthesia: MAC Medications/Allergies Home Medications Medication Instructions Recorded Confirmed Last Taken Type diphenhydramine HCl 25 mg capsule 50 mg PO .HS PRN Rash 01/02/20 07/16/23 07/09/22 History (Benadryl) sertraline 50 mg tablet 50 mg PO DAILY 01/02/20 07/16/23 07/16/23 History nortriptyline 25 mg capsule 25 mg PO DAILY 03/12/22 07/16/23 07/15/23 History meclizine 25 mg tablet (Dramamine 25 mg PO DAILY PRN Dizziness 11/04/22 07/16/23 06/18/23 History (meclizine)) nystatin 100,000 unit/gram topical 1 applic topical TID PRN skin 11/04/22 07/16/23 07/14/23 Rx powder yeast #30 grams furosemide 20 mg tablet See Rx Instructions .Route 02/25/23 07/16/23 07/16/23 Rx .COMPLEX #90 tabs CBD 10 oil PO 05/27/23 07/13/23 Unknown History amlodipine 10 mg tablet See Rx Instructions .Route 06/02/23 07/17/23 07/17/23 Rx .COMPLEX #90 tabs nitroglycerin 0.4 mg sublingual 0.4 mg sublingual Q5M PRN Chest 06/02/23 07/16/23 Unknown Rx tablet (Nitrostat) Pain #30 tabs metoprolol tartrate 50 mg tablet 50 mg PO BID 06/18/23 07/17/23 07/17/23 History ropinirole 0.5 mg tablet 0.5 mg PO DAILY 06/18/23 07/16/23 07/16/23 History tramadol 50 mg tablet 100 mg PO Q4-5H PRN Pain 7 days 06/19/23 07/16/23 07/15/23 Rx #30 tabs clopidogrel 75 mg tablet (Plavix) 75 mg PO DAILY #30 tabs 06/23/23 07/16/23 07/12/23 Rx Allergies Allergy/AdvReac Type Severity Reaction Status Date / Time aspirin [From Percodan] Allergy Unknown Unknown Verified 07/13/23 15:30 codeine Allergy Unknown Unknown Verified 07/13/23 15:30 hydrocodone Allergy Unknown Unknown Verified 07/13/23 15:30 Iodinated Contrast Media Allergy Unknown Unknown Verified 07/13/23 15:30 acetaminophen [From Percocet] Allergy ALGY-Hives Verified 07/17/23 06:49 atorvastatin [From Lipitor] Allergy Abdominal Verified 07/13/23 15:30 pain oxycodone [From Percocet] Allergy ALGY-Hives Verified 07/17/23 06:49 PFSH Anesthesia Medical History Abnormal nuclear stress test Atherosclerosis Atherosclerosis of coronary artery of [place] heart without angina pectoris History of DVT (deep vein thrombosis) In both her legs and arms; uncertain of why she had this. History of non-ST elevation myocardial infarction (NSTEMI) HTN (hypertension) Hyperlipidemia No pertinent past medical history neghx:dm,thyroid,pe PCP: Sanjeev Richardson Surgical History H/O breast biopsy (~1997) Right breast-- benign H/O coronary angiogram (~03/31/18) reports heart stent-- she is on plavix Hx of spinal surgery S/P blepharoplasty S/P cataract extraction S/P cholecystectomy (~1969) S/P hysterectomy (~1968) Exploratory laparotomy which resulted in ALEX. Ovaries spared. Performed in [place]. S/P knee replacement 2011--left knee 2012--right knee S/P shoulder surgery (~2016) Dr. Suazo Family History Brother Hypertension Diabetes Cancer Chronic kidney disease (CKD) Mother Lung disease Breast cancer Sister Colon cancer Denies family history of Ovarian cancer CAD (coronary artery disease) Clotting disorder Dementia Suicide Anesthesia complication Bleeding disorder Uterine cancer Stroke Social History Smoking and tobacco/nicotine status: former use of tobacco/nicotine Second hand smoke exposure: No Alcohol intake: never Substance/Drug Use: never Data Anesthesia Cardiac Studies: Sestamibi Stress Test (Cardiology) 07/12/20
[2023-07-17] MEDS: ceFAZolin 2,000 MG in sodium chloride 0.9% (plus) 50 ML 100 MG IV (07:25)
[2023-07-17] MEDS: BUPivacaine 0.5% INJ 30 mL INJECTION (08:08)
[2023-07-17 08:39] VITALS: BP 169/70; PULSE 71; RESP 16; TEMP 36.1; O2SAT 97
[2023-07-17 08:45] VITALS: BP 159/70; PULSE 71; RESP 16; O2SAT 100
[2023-07-17 08:50] VITALS: BP 152/67; PULSE 73; RESP 16; O2SAT 94
[2023-07-17] MEDS: ondansetron 2 mg/ML SDV 2 mL 4 MG IVP (08:52)
[2023-07-17 08:55] VITALS: BP 145/58; PULSE 72; RESP 16; O2SAT 92
--- NOTE | 2023-07-17 08:57 | P.OP_ITS ---
Operative Report Date of procedure: July 17, 2023 Pre-op diagnosis: Left carpal tunnel syndrome, left middle finger triggering Post-op diagnosis: Left carpal tunnel syndrome, left middle finger triggering Post-op findings: Severe inflammation around the flexor tendon of the long finger. Very tight A1 faith. Tight carpal canal with purplish discoloration of the median nerve. Procedure done: Left carpal tunnel release. Left middle finger trigger finger release. Specimens removed/disposition: None Surgeon: Cassie Benavides MD Ophthalmic Photographer: None Anesthesia: General (Per LMA, ASA 3) Estimated blood loss (mL): 5 Tourniquet time (min): 23 (At 250 mmHg) IV fluids (mL): 600 Urine output (mL): 0 (No Roman) Complications: None Condition: stable Disposition: PACU (Then return to same-day surgery for discharge to home) Brief History: This 83-year-old woman presents today for left carpal tunnel release as well as left long finger trigger release. The patient presented to the office initially with bilateral carpal tunnel syndrome. She had right carpal tunnel release in May and has done very well. Her symptoms greatly improved. She wished to proceed with carpal tunnel to the left wrist. She has significant triggering of the long finger and wishes to have that addressed as well. Risks and complications were discussed with her in the office preoperatively, and consents were signed. Questions were answered. Procedure: The patient was brought to the operating theater. The patient was administered a general anesthesia per LMA, ASA 3. The arm was exsanguinated, and the tourniquet was elevated to 250 mmHg for a total tourniquet time of 23 minutes. The patient was also given Ancef 2 g preoperatively. The arm was then prepped and draped with DuraPrep in usual fashion with the arm draped free. A surgical pause was performed. At the time, the surgical pause, we confirmed the site and side of surgery. We also confirmed the patient's identity, appropriate and timely administration of preoperative antibiotics and preoperative surgical markings. Following the surgical pause, an incision was then made along the thenar crease. The incision crossed the wrist joint in a curvilinear fashion. Dissection continued through skin and soft tissues using a scalpel. The palmaris longus was identified along with the transverse carpal ligament. Each of these was released carefully to avoid injury to the median nerve. We were able to dissect gently into the carpal canal which was noted to be quite tight with significant compression across the median nerve. The nerve was visualized and was an hourglass shape. The canal was subsequently palpated to assure there was no bony encroachment upon the canal. There was a quite thickened fibrous tissue within the canal, and this was opened longitudinally as well. The canal was then palpated distally and proximally to assure that my small finger was passed easily without impingement. Finding this to be so, attention was directed to closure. The wound was irrigated with ropivacaine plain prior to closure. It was then closed with 3-0 nylon in an interrupted mattress fashion. After the carpal tunnel had been released, an incision was made along the distal palmar crease beneath the long finger. Dissection continued through the skin to the subcutaneous tissues using a scalpel. Blunt dissection was then utilized to spread soft tissues and allow access to the A1 faith. It was then incised longitudinally and sharply using a knife. This was accomplished without difficulty and atraumatically. Once the A1 faith was released, tendons were brought up out of the wound and evaluated. There were no gross masses on the tendons, but there was significant inflammation and synovitis around them both at the level of the A1 faith and slightly proximally. Tendons were returned to normal position. Partial release was accomplished proximally as well as there was quite thickened fibrous tissue that was very inflamed in this area. We then irrigated the wound and subsequently closed it with 3-0 nylon with an interrupted mattress type suture. Following closure of the wound, the wound was injected with Ropivacaine into the subcutaneous tissues as a local anesthetic. Sterile dressing was then placed co nsisting of Dermabond, OpSite's, fluffed fluffs, sterile soft roll, and an Rupert wrap. The patient was returned to recovery in satisfactory condition. She will be discharged home to follow-up with me in the office. There were no complications and no specimens. Related Problem List Diagnoses (1) Carpal tunnel syndrome, left: (2) Trigger finger, left middle finger:
[2023-07-17 09:05] VITALS: BP 119/60; PULSE 71; RESP 18; TEMP 36.2; O2SAT 98
[2023-07-17 09:16] VITALS: BP 133/64; PULSE 70; RESP 18; O2SAT 97
--- NOTE | 2023-07-17 12:48 | ANE.PACU2 ---
Inpatient post-anesthesia follow up: Vital signs: Temperature 97.1 F Pulse Rate 70 Respiratory Rate 18 Blood Pressure 133/64 Pulse Oximetry 97 Oxygen Delivery Me thod Room Air Oxygen Flow Rate 6 Fraction of Inspir ed Oxygen Hydration adequate: Yes Nausea and vomiting: No Pain level: 1 Mental status: Baseline
== END 2023-07-17 09:35 | disposition home or self-care (01) ==
PROVIDERS: PCP Family Medicine; Visit Provider Specialist
PROC: (CPT 64721; principal; 2023-07-17 07:00)
PROC: (CPT 26055; 2023-07-17 07:00)
DX: G56.02 Carpal tunnel syndrome, left upper limb (principal); M65.332 Trigger finger, left middle finger; J44.9 Chronic obstructive pulmonary disease, unspecified; Z95.5 Presence of coronary angioplasty implant and graft; M19.90 Unspecified osteoarthritis, unspecified site; Z86.718 Personal history of other venous thrombosis and embolism; I25.2 Old myocardial infarction; I10 Essential (primary) hypertension; E78.5 Hyperlipidemia, unspecified; Z87.891 Personal history of nicotine dependence
CPT/HCPCS: 26055; 64721; J0131; J0690; J2405; J2704; J3010; J3490; J7030

== ENCOUNTER → 2023-08-03 12:46 | Outpatient (BNVA) | payer MEDICARE, SELFPAY | PROVIDERS: PCP Family Medicine; Visit Provider Nurse Practitioner | DX: Z98.890 Other specified postprocedural states (principal); G56.02 Carpal tunnel syndrome, left upper limb; M65.332 Trigger finger, left middle finger | CPT/HCPCS: 99024 ==

== ENCOUNTER → 2023-12-02 13:34 | Outpatient (BNVA) | payer MEDICARE, SELFPAY | PROVIDERS: PCP Family Medicine; Visit Provider Internal Medicine Cardiovascular Disease | DX: I25.10 Atherosclerotic heart disease of native coronary artery without angina pectoris (principal); I15.0 Renovascular hypertension; E78.2 Mixed hyperlipidemia; Z86.718 Personal history of other venous thrombosis and embolism; Z87.891 Personal history of nicotine dependence | CPT/HCPCS: 99214 ==

== ENCOUNTER → 2024-04-01 12:45 | Outpatient (BNVA) | payer MEDICARE, SELFPAY | PROVIDERS: PCP Family Medicine; Visit Provider Specialist | DX: G61.81 Chronic inflammatory demyelinating polyneuritis (principal); G60.9 Hereditary and idiopathic neuropathy, unspecified; M46.1 Sacroiliitis, not elsewhere classified; M79.7 Fibromyalgia; M70.61 Trochanteric bursitis, right hip; G25.81 Restless legs syndrome; Y93.9 Activity, unspecified | CPT/HCPCS: 20610; 27096; 64447; 99214; 99215; J1010; J3490 ==

== ENCOUNTER → 2024-05-03 14:13 | Outpatient (BNVA) | payer MEDICARE, SELFPAY | PROVIDERS: PCP Family Medicine; Visit Provider Nurse Practitioner | DX: M16.11 Unilateral primary osteoarthritis, right hip (principal) | CPT/HCPCS: 36415; 73502; 80053; 81003; 81015; 85025; 99204 ==

== ENCOUNTER → 2024-05-25 10:11 | Outpatient (BNVA) | payer MEDICARE, SELFPAY | PROVIDERS: PCP Family Medicine; Visit Provider Family Medicine | DX: Z01.818 Encounter for other preprocedural examination (principal) | CPT/HCPCS: 80048; 81003; 85025; 93005 ==

== ENCOUNTER 2024-06-01 06:00 | Outpatient (CLI) | payer MEDICARE, SELFPAY | END 2024-06-01 06:01 | disposition home or self-care (01) | LOC: RAD 06-06 06:44 | PROVIDERS: PCP Family Medicine; Visit Provider Internal Medicine Cardiovascular Disease | DX: I25.10 Atherosclerotic heart disease of native coronary artery without angina pectoris (principal); I65.23 Occlusion and stenosis of bilateral carotid arteries; I15.0 Renovascular hypertension; E78.2 Mixed hyperlipidemia; Z86.718 Personal history of other venous thrombosis and embolism | CPT/HCPCS: 99214 ==

== ENCOUNTER 2024-06-09 15:16 | Observation (INO) | payer MEDICARE, SELFPAY ==
[2024-06-09] VITALS (15 sets, daily range): BP systolic 114–169; BP diastolic 53–125; PULSE 70–88; RESP 12–18; TEMP 36.4–37.1; O2SAT 93–100; BMI 28.8
[2024-06-09] MEDS: sodium chloride 0.9% 1,000 ML 30 ML IV (11:02)
[2024-06-09] MEDS: acetaminophen 1,000 MG/100 ML PIGGYBACK 400 MG IV ×2 (11:06→18:50)
[2024-06-09] MEDS: ondansetron 2 mg/ML SDV 2 mL 4 MG IVP ×2 (11:09→14:31)
[2024-06-09 11:30] LABS: INR 0.96 (0.8-1.2)
[2024-06-09] MEDS: fentaNYL 50 mcg/mL INJ 2mL IVP ×3 (11:59→19:47)
--- NOTE | 2024-06-09 13:33 | P.HPUD_ITS ---
Surgery/Procedure H&P Update DATE OF PROCEDURE: June 09, 2024 DATE H&P PERFORMED: 05/25/24 H&P UPDATE INFORMATION: I have reviewed H&P completed within last 30 days, I have examined patient prior to procedure, No changes to prior documentation and [place] is in [facility] [place] date indicated PLANNED PROCEDURE: Operation Date: 06/09/24 12:05 Proposed Procedures p Total Hip Arthroplasty(Right) - Cassie Benavides MD Related Problem List Diagnoses (1) Primary osteoarthritis of right hip:
--- NOTE | 2024-06-09 14:39 | ANES.PREANE2 ---
Pre-Anesthetic Assessment Height/Weight: Height 5 ft 3 in Weight 163 lb Temp Pulse Resp BP Pulse Ox O2 Del Method 98.3 F 87 16 150/125 94 Room Air 06/09/24 10:55 06/09/24 10:55 06/09/24 10:55 06/09/24 10:55 06/09/24 10:55 06/09/24 10:55 Preop Diagnosis: Hip arthritis Operation Date: 06/09/24 12:05 Proposed Procedures p Total Hip Arthroplasty(Right) - Cassie Benavides MD Was Beta Mohini taken within 24 hours: N/A Was Clonidine taken within 24 hours: N/A Last intake: Intake Last Liquid Date 06/08/24 Last Liquid Time 21:00 Last Solid Date 06/08/24 Last Solid Time 21:00 Social No alcohol and No tobacco Exam alert, oriented x 3, clear to auscultation bilaterally and regular rate & rhythm Airway Submandibular: within normal limits Cervical ROM: within normal limits Mallampati: Class I Dentition: full Anesthetic Plan ASA status: 2 Anesthesia: General Other: No prior issues with anesthesia History of CAD with previous stents. Follows with cardiology. Most recent stent placed 2018 off Plavix for 6 days Prior DVTs years ago History of hypertension on amlodipine and metoprolol Patient uses a cane to walk but lives on her own and performs ADLs Labs reviewed and acceptable for surgery EKG sinus rhythm Multiple back issues on chronic tramadol Plan for general anesthesia Medications/Allergies Home Medications Medication Instructions Recorded Confirmed Last Taken Type nitroglycerin 0.4 mg sublingual 0.4 mg sublingual Q5M PRN Chest 06/02/23 06/09/24 Unknown Rx tablet (Nitrostat) Pain #30 tabs metoprolol tartrate 50 mg tablet 50 mg PO BID #60 tabs 11/18/23 06/09/24 06/08/24 Rx amlodipine 5 mg tablet 5 mg PO DAILY 12/02/23 06/09/24 06/08/24 History potassium chloride 8 mEq 8 meq PO DAILY 90 days #90 caps 12/02/23 06/09/24 Unknown Rx capsule,extended release clopidogrel 75 mg tablet (Plavix) 75 mg PO DAILY #90 tabs 01/28/24 06/09/24 06/04/24 Rx tramadol 50 mg tablet 100 mg PO BID PRN Pain 04/01/24 06/09/24 06/08/24 History diclofenac sodium 50 mg 50 mg PO BID 30 days #60 tabs 05/03/24 06/09/24 Unknown Rx tablet,delayed release bisacodyl 5 mg tablet,delayed 5 mg PO DAILY 05/25/24 06/09/24 06/08/24 History release furosemide 20 mg tablet 20 mg PO DAILY 06/09/24 06/09/24 06/06/24 History ropinirole 0.5 mg tablet 0.5 mg PO BID 06/09/24 06/09/24 06/08/24 History Allergies Allergy/AdvReac Type Severity Reaction Status Date / Time aspirin [From Percodan] Allergy Unknown gi upset Verified 06/01/24 13:52 codeine Allergy Unknown Unknown Verified 06/01/24 13:52 hydrocodone Allergy Unknown Unknown Verified 06/01/24 13:52 Iodinated Contrast Media Allergy Unknown Unknown Verified 06/01/24 13:52 atorvastatin [From Lipitor] Allergy Abdominal Verified 06/01/24 13:52 pain gabapentin Allergy ADR-Agitate Verified 06/09/24 11:18 d oxycodone [From Percocet] Allergy ALGY-Hives Verified 06/01/24 13:52 Current Medications Generic Name Dose Route Start Last Admin Trade Name Freq PRN Reason Stop Dose Admin Fentanyl 50 mcg 06/09/24 10:28 06/09/24 11:59 Fentanyl 50 Mcg/Ml Inj 2ml IVP 50 mcg Q10M PRN Administration Preop Pain Sodium Chloride 1,000 mls @ 30 mls/hr 06/09/24 10:30 06/09/24 11:02 Sodium Chloride 0.9% IV 06/10/24 10:29 30 mls/hr .Q24H TERRY Administration Ondansetron HCl 4 mg 06/09/24 10:28 06/09/24 14:31 Ondansetron 2 Mg/Ml Sdv 2 Ml IVP 4 mg Q5M PRN Administration NAUSEA AND VOMITING PFSH Anesthesia Medical History Primary osteoarthritis of right hip No pertinent past medical history neghx:dm,thyroid,pe PCP: Sanjeev Richardson Abnormal nuclear stress test Atherosclerosis of coronary artery of [place] heart without angina pectoris History of DVT (deep vein thrombosis) In both her legs and arms; uncertain of why she had this. History of non-ST elevation myocardial infarction (NSTEMI) Hyperlipidemia HTN (hypertension) Atherosclerosis Surgical History Status post trigger finger release Status post carpal tunnel release H/O coronary angiogram (~03/31/18) reports heart stent-- she is on plavix H/O breast biopsy (~1997) Right breast-- benign Hx of spinal surgery S/P hysterectomy (~1968) Exploratory laparotomy which resulted in ALEX. Ovaries spared. Performed in [place]. S/P knee replacement 2011--left knee 2012--right knee S/P cholecystectomy (~1969) S/P blepharoplasty S/P shoulder surgery (~2016) Dr. Suazo S/P cataract extraction Family History Brother Hypertension Diabetes Cancer Chronic kidney disease (CKD) Mother Lung disease Breast cancer Sister Colon cancer Denies family history of Ovarian cancer CAD (coronary artery disease) Clotting disorder Dementia Suicide Anesthesia complication Bleeding disorder Uterine cancer Stroke Social History Smoking and tobacco/nicotine status: never used tobacco/nicotine Second hand smoke exposure: No Alcohol intake: never Substance/Drug Use: never Data Anesthesia Coags 06/09/24 10:59 PT 13.10 INR 0.96 Cardiac Studies: Sestamibi Stress Test (Cardiology) 07/12/20
[2024-06-09] MEDS: ceFAZolin 2,000 mg SDV 2000 MG IVP ×2 (15:12→18:49)
[2024-06-09] MEDS: tranexamic acid 1,000 mg/10mL SDV 1000 MG (15:52)
[2024-06-09] MEDS: ceFAZolin 1,000 mg SDV 1000 MG IRRIGATION (15:53)
[2024-06-09] MEDS: vancomycin 1,000 MG SDV 1000 MG (15:54)
--- NOTE | 2024-06-09 17:37 | PM.OP ---
Operative Report Date of procedure: June 09, 2024 Pre-op diagnosis: Severe degenerative osteoarthritis right hip Post-op diagnosis: Severe degenerative osteoarthritis right hip Post-op findings: Severe degenerative osteoarthritis with fragments of cartilaginous tissue within the joint Procedure done: Right total hip arthroplasty Implants: The Thor hip system utilizing the Insignia hip stem standard offset size 5, with a size 52 mm by E alpha code Trident TriTanium solid back acetabular shell, a 42 mm E MDM cementless liner, and a Biolox delta ceramic V40 femoral head size 28 mm outer diameter with +0 mm neck length Specimens removed/disposition: Femoral head, disposed of Surgeon: Cassie Benavides MD Breakfast Bar Attendant: Pat Alcocer Breakfast Bar Attendant: Whose services were required for positioning, retraction, closure, and overall completion of the surgical procedure Anesthesia: General (Intubated, ASA 2) Estimated blood loss (mL): 260 IV fluids (mL): 1,200 Urine output (mL): 200 Complications: None Findings: Severe degenerative osteoarthritis and cartilaginous fragmentation. Large greater trochanteric bursitis Condition: stable Disposition: PACU (Then to the floor for postoperative rehabilitation and pain management) Brief History: This 84-year-old woman presented to the office with complaints of right hip pain. She has previously been seen for other issues, but upon presentation for this pain, she noted 9 of 10 pain. She had no known injury, but she had had about 6 months of hip pain. The hip pain started in the buttocks area radiated around to her groin area and somewhat down her leg. She had been taking tramadol which helped somewhat. She noted significant limitations in activities of daily living. After discussion in the office, the patient wished to proceed with total hip arthroplasty. Risks and complications were discussed with her. Consents were signed and questions were answered. Procedure: Patient was brought to the operating theater. She was transferred to the operating room table and subsequently administered a general anesthetic intubated, ASA 2. Following administration of adequate anesthesia, the patient was placed in full lateral position and held in position with a pegboard. Also, the patient had minimal movement in her right lower extremity preoperatively. The patient's right lower extremity was then prepped and draped in usual fashion utilizing DuraPrep. It was draped free. Following prepping and draping a surgical pause was performed. At the time of surgical pause, we identified the site and side of surgery. We also identified the patient and preoperative surgical markings. Confirmation was made of equipment availability. Additionally, the patient's preoperative IV antibiotic, Ancef 2 g, was confirmed as being given in a timely fashion and being the appropriate antibiotic. Following the surgical pause, an incision was made centering over the patient's greater trochanter continuing proximally and distally as necessary to allow access to the hip joint. Dissection continued through skin and soft tissues using a scalpel, and hemostasis was obtained using electrocautery. The tensor fascia jennifer was identified and incised longitudinally. Sciatic nerve was identified and protected throughout the surgical procedure. A Charnley U retractor was placed after the tensor fascia jennifer had been incised longitudinally, and the sciatic nerve had been identified. The hip was internally rotated, and the piriformis muscle was identified and tagged. Piriformis muscle along with the remaining short external rotators were then incised from the posterior aspect of the hip joint. These were retracted posteriorly. The capsule was entered in a T-type fashion with the edges being tagged, and subsequently the hip was dislocated. Following hip dislocation, a femoral neck osteotomy was accomplished in the appropriate position. We then evaluated the acetabulum. The femur was retracted anteriorly. Soft tissues were retracted and the labrum was removed. We then began reaming. Once the femoral head was removed, there was no evidence of infection, but there was significant loss of cartilage over the head and over the acetabulum with femoral head collapse. We reamed the acetabulum to a size 51 to allow for a size 52 mm TriTanium solid back acetabular shell component. The acetabulum was impacted into position. The shell was impacted into position. Subsequently, the MDM liner, cementless was impacted into place. This was a size 42 mm with the alpha code to match the size 52 TriTanium shell. Once this was impacted into position, edges were checked to ensure there was no soft tissue impingement. The area was irrigated and attention was directed to the proximal femur. The proximal femur was lifted out of the wound. A canal finder was passed after the box chisel. The reamer was used to lateralize. We then began broaching. We broached sequentially and had excellent fit and fill with the size 5 standard offset Insignia hip stem. A trial reduction was accomplished with a +0 mm femoral head inside a trial MDM insert size 28 mm inner diameter by 42E. Leg lengths were evaluated and felt to be restored. The patient was stable to external rotation, toe hang, and at 90 degrees of flexion with 60 degrees of internal rotation and 30 degrees of adduction. The stability was felt to be excellent. Therefore, trial components were removed after the hip was dislocated. The size 5 Insignia hip stem, Thor, with standard offset was impacted into position. Once this was in place, the MDM liner size 42 mm by E alpha code was assembled with the 28 mm +0 mm Biolox femoral head. This was then placed onto the hip stem and impacted into position. Hip was reduced. Again the hip was placed through range of motion and the above stabilities were obtained. The wound was copiously irrigated with 20 mL of Betadine and 500 mL of normal saline mixed together. Subsequently, we suctioned this out and irrigated the wound copiously with lactated Ringer's. Being satisfied with the prosthesis, attention was directed to closure. Closure was accomplished with 0 Vicryl in the capsular tissues. Piriformis was reattached with 0 Vicryl as well. Tensor fascia jennifer was closed with 0 Vicryl in an interrupted fashion. The subcutaneous tissues were closed with a combination of 0 Vicryl and 2-0 STRATAFIX in a running fashion. Vancomycin powder and a Gelfoam thrombin mixture was placed into the wound as well. The skin was closed with a running 3-0 STRATAFIX followed by Dermabond Sebastien and Rena. The patient was placed in an abduction pillow. She was returned the Recovery Room in a satisfactory condition and will be discharged to the floor for postoperative rehabilitation and pain management. There were no complications. Related Problem List Diagnoses (1) Primary osteoarthritis of right hip:
--- NOTE | 2024-06-09 17:40 | XRR_ITS ---
PROCEDURE INFORMATION: Exam: XR Pelvis Exam date and time: 06/09/2024 5:46 PM Age: 84 years old Clinical indication: Hip pain; Right hip; Prior surgery; Surgery date: Post-operative (0-2 days); Surgery type: R hip hemiarthroplasty; Additional info: Post op, low ap pelvis TECHNIQUE: Imaging protocol: Radiologic exam of the pelvis. Views: 1 or 2 view. COMPARISON: CR XR hip RT 2-3V wo/w pel* [id number] 05/03/2024 2:55 PM FINDINGS: Bones/joints: Interval total right hip arthroplasty. Hardware appears intact without complication. No acute fracture or dislocation. Mild to moderate degenerative changes of the left hip. Soft tissues: Unremarkable. XR/XR pelvis 1-2V* [id number] IMPRESSION: Right hip arthroplasty without apparent complication.
--- NOTE | 2024-06-09 18:11 | ANE.PACU2 ---
Inpatient post-anesthesia follow up: Airway intact: Yes Vital signs: Temperature 98.3 F Pulse Rate 73 Respiratory Rate 17 Blood Pressure 145/68 Pulse Oximetry 98 Oxygen Delivery Me thod Nasal Cannula Oxygen Flow Rate 3 Fraction of Inspir ed Oxygen Hydration adequate: Yes Nausea and vomiting: No Pain level: 1 Mental status: Baseline
[2024-06-09] MEDS: calcium carbonate 500 mg Chew Tablet 1000 MG PO (18:48)
[2024-06-09] MEDS: mupirocin oint 22 gm 1 APPLIC NASAL (18:49)
[2024-06-09] MEDS: sennosides-docusate Tablet 2 TAB PO (18:49)
[2024-06-09] MEDS: metoprolol tartrate 50 mg Tablet PO (18:49)
[2024-06-09] MEDS: iron polysaccharide complex 150 mg Capsule PO (18:49)
[2024-06-09] MEDS: oxyCODONE 5 mg IR Tab/Cap PO (20:04)
[2024-06-09] MEDS: chlorhexidine gluconate 0.12% Btl 473 mL 30 ML MUCOUS MEM (20:07)
[2024-06-09] MEDS: TRAMadol 50 mg Tablet 100 MG PO (23:47)
[2024-06-09] MEDS: tranexamic acid 1,000 MG/100 ML PREMIX 600 MG IV (23:55)
[2024-06-10] VITALS (7 sets, daily range): BP systolic 142–150; BP diastolic 59–68; PULSE 73–80; RESP 12–22; TEMP 36.6–36.8; O2SAT 92–100
[2024-06-10] MEDS: ceFAZolin 2,000 mg SDV 2000 MG IVP ×2 (02:27→11:37)
[2024-06-10] MEDS: acetaminophen 1,000 MG/100 ML PIGGYBACK 400 MG IV ×2 (02:35→11:38)
[2024-06-10] MEDS: ondansetron 2 mg/ML SDV 2 mL 4 MG IVP ×2 (03:03→08:50)
[2024-06-10] MEDS: oxyCODONE 5 mg IR Tab/Cap PO ×2 (04:32→08:45)
[2024-06-10 05:26] LABS: Basophils # 0.1 10^3/uL (0.0-0.1); Basophils % 0.3 %; Hematocrit 37.9 % (36-47); Lymphocytes # 1.2 10^3/uL (0.8-4.8); Lymphocytes % 6.8 %; Mean Corpuscular HGB Conc 31.9 g/dL (30-55); Mean Platelet Volume 10.4 fL (7.4-10.4); Monocytes # 0.8 10^3/uL (0.2-0.9); Monocytes % 4.5 %; Neutrophils # 15.68 10^3/uL (1.8-7.7); Neutrophils % 87.9 %; Nucleated Red Blood Cells % 0 %; Platelet Count 274 10^3/cmm (157-399); Red Blood Count 4.03 10^6/uL (3.85-5.65); Red Cell Distribution Width 13.6 % (12.1-15.1); White Blood Count 17.84 10^3/uL (3.29-11.43)
[2024-06-10 05:49] LABS: Anion Gap 13.6 (5-19); Blood Urea Nitrogen 12 mg/dL (8-23); Calcium 9.1 mg/dL (8.5-10.5); Carbon Dioxide 28 mmol/L (22-29); Chloride 98 mmol/L (98-107); Creatinine Clr Calc Pharmacy 51.2413; Glucose 154 mg/dL (65-115); Osmolality Calculated 283 mOsm/kg (285-295); Potassium 4.6 mmol/L (3.5-5.1); Sodium 135 mmol/L (136-145)
[2024-06-10] MEDS: cholecalciferol (vitamin D3) 1,000 unit Tablet 1000 UNIT PO (08:42)
[2024-06-10] MEDS: calcium carbonate 500 mg Chew Tablet 1000 MG PO (08:42)
[2024-06-10] MEDS: ropinirole 0.25 mg Tablet 0.5 MG PO (08:43)
[2024-06-10] MEDS: amlodipine 5 mg Tablet PO (08:44)
[2024-06-10] MEDS: bisacodyl 5 mg Tablet PO (08:44)
[2024-06-10] MEDS: metoprolol tartrate 50 mg Tablet PO (08:47)
[2024-06-10] MEDS: multivitamin therapeutic Tablet 1 TAB PO (08:47)
[2024-06-10] MEDS: aspirin 325 mg EC Tablet PO (08:47)
[2024-06-10] MEDS: FUROsemide 20 mg Tablet PO (08:47)
[2024-06-10] MEDS: CELEcoxib 200 mg Capsule PO (08:47)
[2024-06-10] MEDS: clopidogrel 75 mg Tablet PO (08:48)
[2024-06-10] MEDS: TRAMadol 50 mg Tablet 100 MG PO (11:37)
[2024-06-10] MEDS: scopolamine 1.5 Patch 1 PATCH TRANSDERMA (12:48)
--- NOTE | 2024-06-10 15:05 | PM.DCS ---
Discharge Providers Date of Admission: 06/09/24 15:16 Date of Discharge: June 10, 2024 Attending Provider at Admission: Cassie Benavides MD Attending Provider at Discharge: Cassie Benavides MD Primary Care Provider: Sanjeev Richardson MD Diagnoses at Discharge Discharge Diagnosis (1) Primary osteoarthritis of right hip: Status: Chronic (2) Status post total hip replacement, right: Status: Acute Permanent problem details: Date of procedure: June 09, 2024 Diagnosis: Severe degenerative osteoarthritis right hip Procedure done: Right total hip arthroplasty Implants: The Thor hip system utilizing the Insignia hip stem standard offset size 5, with a size 52 mm by E alpha code Trident TriTanium solid back acetabular shell, a 42 mm E MDM cementless liner, and a Biolox delta ceramic V40 femoral head size 28 mm outer diameter with +0 mm neck length Reason for Visit Reason for Visit: M16.11 Brief History: This 84-year-old woman presented to the office with complaints of right hip pain. She has previously been seen for other issues, but upon presentation for this pain, she noted 9 of 10 pain. She had no known injury, but she had had about 6 months of hip pain. The hip pain started in the buttocks area radiated around to her groin area and somewhat down her leg. She had been taking tramadol which helped somewhat. She noted significant limitations in activities of daily living. After discussion in the office, the patient wished to proceed with total hip arthroplasty. Risks and complications were discussed with her. Consents were signed and questions were answered. Hospital Course Hospital Course Patient was admitted under observation status following right total hip arthroplasty which she tolerated well. The first postoperative day, she worked with physical therapy and was deemed safe for discharge to home. The patient was comfortable and tolerating pain medications. Therefore, she will be discharged home with home health. She will follow-up in the office as scheduled. Physical Exam Const: COMMON NORMALS: no acute distress, average body habitus, patient oriented x3 and alert GENERAL APPEARANCE: cooperative and comfortable ORIENTATION/CONSCIOUSNESS: Yes awake HENMT: COMMON NORMALS: normocephalic and atraumatic HEAD & SCALP: normocephalic and atraumatic Eye: GENERAL EYE: appearance normal, both eyes and all related structures Chest: COMMONS NORMALS: normal inspection of the chest Resp: COMMON NORMALS: normal respiratory effort EFFORT & INSPECTION: Yes able to speak in complete sentences and Yes symmetric chest movement Extremity: RIGHT LOWER EXTREMITY: Yes hip joint (No significant swelling) Right hip: Yes inspection (No erythema or ecchymosis), Yes ROM (Not evaluated) and Yes neurovascular exam (Intact with no evidence of DVT) Neuro: COMMON NORMALS: patient oriented x3 SENSORIUM/ORIENTATION: Yes alert Psych: COMMON NORMALS: mental status grossly normal APPEARANCE: Yes grossly normal ATTITUDE: Yes calm and Yes engaged ATTENTION/CONCENTRATION: Yes attention grossly intact Skin: COMMON NORMALS: no rashes or lesions noted GENERAL SKIN EXAM: no rashes or lesions noted Urinary Catheter Management: Roman: Cath Placed During This Visit: yes, but has since been removed by the nurse Reason for Continuing Indwelling Catheter: Other Urinary Catheter Date of Insertion: 06/09/24 Urinary Catheter Time of Insertion: 15:30 Date Urinary Catheter Removed: 06/10/24 Time Urinary Catheter Discontinued: 06:00 Discharge Data Studies Completed and Pending Completed Studies During Hospitalization Category Date Time Status XR pelvis 1-2V* [id number] Routine Exams 06/09/24 17:40 Completed Radiology Impressions Pelvis X-Ray 06/09/24 17:40 IMPRESSION: Right hip arthroplasty without apparent complication. Laboratory Results WBC 17.84 10^3/uL (3.29-11.43) H 06/10/24 05:00 RBC 4.03 10^6/uL (3.85-5.65) 06/10/24 05:00 Hgb 12.10 g/dL (11.27-16.99) 06/10/24 05:00 Hct 37.9 % (36-47) 06/10/24 05:00 MCV 94.0 fl (85-98) 06/10/24 05:00 MCH 30.0 pg (27-33) 06/10/24 05:00 MCHC 31.9 g/dL (30-55) 06/10/24 05:00 RDW 13.6 % (12.1-15.1) 06/10/24 05:00 Plt Count 274 10^3/cmm (157-399) 06/10/24 05:00 MPV 10.4 fL (7.4-10.4) 06/10/24 05:00 Neut % (Auto) 87.9 % 06/10/24 05:00 Lymph % (Auto) 6.8 % 06/10/24 05:00 [place] % (Auto) 4.5 % 06/10/24 05:00 Eos % (Auto) 0.0 % 06/10/24 05:00 Baso % (Auto) 0.3 % 06/10/24 05:00 Neut # (Auto) 15.68 10^3/uL (1.8-7.7) H 06/10/24 05:00 Lymph # (Auto) 1.2 10^3/uL (0.8-4.8) 06/10/24 05:00 [place] # (Auto) 0.8 10^3/uL (0.2-0.9) 06/10/24 05:00 Eos # (Auto) 0.0 10^3/uL (0.0-0.8) 06/10/24 05:00 Baso # (Auto) 0.1 10^3/uL (0.0-0.1) 06/10/24 05:00 Nucleated RBC % (auto) 0 % 06/10/24 05:00 Nucleated RBCs # 0.0 /100WBC 06/10/24 05:00 PT 13.10 SECONDS (12.1-14.9) 06/09/24 10:59 INR 0.96 (0.8-1.2) 06/09/24 10:59 Sodium 135 mmol/L (136-145) L 06/10/24 05:00 Potassium 4.6 mmol/L (3.5-5.1) 06/10/24 05:00 Chloride 98 mmol/L (98-107) 06/10/24 05:00 Carbon Dioxide 28 mmol/L (22-29) 06/10/24 05:00 Anion Gap 13.6 (5-19) 06/10/24 05:00 BUN 12 mg/dL (8-23) 06/10/24 05:00 Creatinine 0.7 mg/dL (0.5-0.9) 06/10/24 05:00 GFR Calculation Not Reportable 06/10/24 05:00 Glucose 154 mg/dL (65-115) H 06/10/24 05:00 Calculated Osmolality 283 mOsm/kg (285-295) L 06/10/24 05:00 Calcium 9.1 mg/dL (8.5-10.5) 06/10/24 05:00 Vitals Last Vital Signs Temp 97.9 F 06/10/24 08:00 Pulse 80 06/10/24 12:48 Resp 16 06/10/24 08:45 BP 150/68 06/10/24 12:48 Pulse Ox 92 06/10/24 08:00 O2 Del Method Nasal Cannula 06/10/24 05:00 O2 Flow Rate 3 06/09/24 20:12 Discharge Plan Discharge Patient Disposition: Home Health Service Condition: Stable Prescriptions: New celecoxib 200 mg Capsule 200 mg PO DAILY 30 Days Qty: 30 0RF acetaminophen 500 mg Tablet 1,000 mg PO Q8H 15 Days Qty: 90 0RF aspirin 325 mg Tablet,Delayed Release (Dr/Ec) 325 mg PO DAILY 30 Days Qty: 30 0RF oxycodone 5 mg Tablet 5 - 10 mg PO Q4H PRN (Reason: Moderate To Severe Pain) 7 Days Qty: 40 0RF Continued bisacodyl 5 mg tablet,delayed release (DR/EC) 5 mg PO DAILY metoprolol tartrate 50 mg tablet 50 mg PO BID Qty: 60 3RF Rx Instructions: TAKE 1 TABLET TWICE DAILY amlodipine 5 mg tablet 5 mg PO DAILY potassium chloride 8 mEq capsule, extended release 8 meq PO DAILY 90 Days Qty: 90 3RF tramadol 50 mg tablet 100 mg PO BID PRN (Reason: Pain) Rx Instructions: for moderate to severe pain nitroglycerin [Nitrostat] 0.4 mg tablet, sublingual 0.4 mg SUBLINGUAL Q5M PRN (Reason: Chest Pain) Qty: 30 3RF clopidogrel [Plavix] 75 mg tablet 75 mg PO DAILY Qty: 90 3RF ropinirole 0.5 mg tablet 0.5 mg PO BID Rx Instructions: TAKE 1 TABLET TWICE DAILY NEEDED FOR PAIN AND RESTLESS LEG furosemide 20 mg tablet 20 mg PO DAILY Rx Instructions: TAKE 1 TABLET EVERY DAY Held diclofenac sodium 50 mg tablet,delayed release (DR/EC) 50 mg PO BID 30 Days Qty: 60 0RF Hold Instructions: Resume on 07/10/24. Resume once you have completed your prescription Discharge Orders: Discharge Order (Routine); Ordered 06/10/24 Ordered By: Cassie Benavides Other Ambulatory Orders: DME: [facility] (Order) Location: None Selected Ordered By: Cassie Benavides Ref[facility]: [facility] [place]] [facility] ([facility]) [Outside] Cassie Benavides MD [Physician] - 06/22/24 10:45 am Sanjeev Richardson MD [Primary Care Provider] - (We have notified your physician's clinic of the need for a follow-up appointment to be scheduled. If you have not heard from them within the next 2 business days, please call them directly. ) Discharge Diet: Advance as tolerated and Usual diet Discharge Activity: Increase activity as tolerated, Limit activity as instructed, Use walker/crutches as instructed and As per PT/OT instructions Patient Instructions: Aspirin (By mouth), Oxycodone, Rapid Release (By mouth), Celecoxib (By mouth), Acute Wound Care (DC), Opioid Safety, Post Anesthesia Care Activity Restrictions/Additional Instructions: Posterior hip precautions. Ice to hip. Use walker and crutches as per physical therapy instructions. You may weight-bear as tolerated. Discharge Attestations Time Spent in Discharge Care*: greater than 30 min Specific Discharge Activities: educating patient, documenting/other paperwork and evaluating patient/reviewing data Quality Metrics Clinical Quality Measures [ No reported AMI, CVA or VTE this stay] Coding Level of Care Code Acute Code for Chg Fwd Diagnoses Primary osteoarthritis of right hip M16.11 Status post total hip replacement, right Z96.641
== END 2024-06-10 15:59 | disposition home health service (06) ==
LOC: MEDSURG 15:16
PROVIDERS: Student in an Organized Health Care Education/Training Program; Admitting Provider Specialist; PCP Family Medicine; Visit Provider Specialist
PROC: (CPT 27130; principal; 2024-06-09 11:35)
DX: M16.11 Unilateral primary osteoarthritis, right hip (principal); I25.10 Atherosclerotic heart disease of native coronary artery without angina pectoris; Z95.5 Presence of coronary angioplasty implant and graft; Z79.02 Long term (current) use of antithrombotics/antiplatelets; I10 Essential (primary) hypertension; Z86.718 Personal history of other venous thrombosis and embolism; Z79.891 Long term (current) use of opiate analgesic; E78.5 Hyperlipidemia, unspecified
CPT/HCPCS: 27130; 36415; 51702; 72170; 80048; 85025; 85610; 97110; 97116; 97161; 97165; 97530; 97535; C1776; G0378; J0131; J0690; J1100; J1170; J2405; J2704; J2710; J3010; J3370; J3490; J7030

== ENCOUNTER 2024-06-15 08:28 | Emergency (ER) | payer MEDICARE, SELFPAY ==
[2024-06-15] VITALS (29 sets, daily range): BP systolic 91–156; BP diastolic 45–99; PULSE 78–112; RESP 15–29; TEMP 36.6–37.1; O2SAT 82–100; BMI 30.9
--- NOTE | 2024-06-15 08:35 | ECG_ITS ---
[facility] Test Date: 2024-06-15 Pat Name: Flakita Sutherland Department: Room: Gender: Female Legend Maker: : 1940 Requested By: Sina Caballero Order Number: [id number] Lenore MD: Vj Carreno M.D. Measurements Intervals [place] Rate: 101 P: 75 ID: [id number] QRS: -11 QRSD: 106 T: 102 QT: 347 QTc: 451 Interpretive Statements SINUS TACHYCARDIA POSSIBLE ANTERIOR MYOCARDIAL INFARCTION , OF INDETERMINATE AGE [30 ms Q WAVE IN V3/V4, OR R < 0.2 mV IN V4] MODERATE T-WAVE ABNORMALITY, CONSIDER LATERAL ISCHEMIA [-0.1+ mV T-WAVE IN I/aVL/V5/V6] Compared to ECG 05/25/2024 10:31:16 Myocardial infarct finding now present T-wave abnormality now present Possible ischemia now present Sinus rhythm no longer present Electronically Signed On 06-15-2024 23:03:56 CDT by Vj Carreno M.D. [email or web address]
[2024-06-15 08:48] LABS: ABG PCO2 28.6 mmHg (35-45); ABG PH Result 7.52 (7.35-7.45); Arterial Blood Gas Hematocrit 33.3 % (37-47); Base Excess ABG 1.1 mmol/L (-2.0-2.0); Blood Gas Allen Test Pos; Blood Gas Operator Identificat WALCI; Blood Gas Sample Site Radial, left; Blood Gas Sample Type Arterial; Carboxyhemoglobin 1.6 %THgb (0.4-20.1); HCO3 ABG 23.3 mmol/L (22-26); HGB O2 Sat 97.9 % (95-100); Ionized Calcium Level - ABG 1.1 mmol/L (1.1-1.4); Oxygen Device NRB; Oxygen Saturation ABG > 99.1; Potassium Level - ABG 4.4 mmol/L (3.5-5.0); Total Hemoglobin 10.9 g/dL (12-16)
--- NOTE | 2024-06-15 08:51 | ED_ITS ---
Documented by User: Sina Alvaradomisti, 06/16/24 11:27 HPI - SOB/Dyspnea 2 General: Chief Complaint: Shortness of Breath/Dyspnea Stated Complaint: sob, n/v Time Seen by Provider: 06/15/24 08:38 History of Present Illness: HPI Narrative: 84-year-old female presents emergency ro om from home via shortness of breath with nausea. EMS reported her room air sat was 60%. She denies chest pain. Reported she is 90% on nonrebreather. Nursing staff appropriately ordered an ABG on her arrival and actually shows respiratory alkalosis with a pCO2 of 28 seconds pO2 of 201 on the nonrebreather. She denies abdominal pain there is report of dark stool and coffee-ground like emesis. She does tell me she is anticoagulants due to blood clot that she had at a very young age she reports they were held for surgery and then resumed. Currently on her medicine she is clopidogrel but is not reviewed by pharmacy technician program director yet. She denies chest pain or increased swelling in her legs recently. She has some mild discomfort from the hip arthroplasty but it is not suddenly worse and she denies any recent falls or injury or syncope. Associated symptoms: Deny abdominal pain, chest pain or fever(s) Related Data Home Medications Medication Instructions Recorded Confirmed amlodipine 5 mg tablet 5 mg PO DAILY 12/02/23 06/15/24 tramadol 50 mg tablet 100 mg PO BID PRN Pain 04/01/24 06/15/24 bisacodyl 5 mg tablet,delayed 5 mg PO DAILY 05/25/24 06/15/24 release furosemide 20 mg tablet 20 mg PO DAILY 06/09/24 06/15/24 ropinirole 0.5 mg tablet 0.5 mg PO BID PRN Restless Leg(S) 06/09/24 06/15/24 Previous Rx's Medication Instructions Recorded nitroglycerin 0.4 mg sublingual 0.4 mg sublingual Q5M PRN Chest 06/02/23 tablet (Nitrostat) Pain #30 tabs metoprolol tartrate 50 mg tablet 50 mg PO BID #60 tabs 11/18/23 potassium chloride 8 mEq 8 meq PO DAILY 90 days #90 caps 12/02/23 capsule,extended release clopidogrel 75 mg tablet (Plavix) 75 mg PO DAILY #90 tabs 01/28/24 diclofenac sodium 50 mg 50 mg PO BID 30 days #60 tabs 05/03/24 tablet,delayed release acetaminophen 500 mg tablet 1,000 mg (2 x 500 mg) PO Q8H 15 06/10/24 days #90 tabs aspirin 325 mg tablet,delayed 325 mg PO DAILY 30 days #30 tabs 06/10/24 release celecoxib 200 mg capsule 200 mg PO DAILY 30 days #30 caps 06/10/24 oxycodone 5 mg tablet 5 - 10 mg (1 - 2 x 5 mg) PO Q4H 06/10/24 PRN Moderate To Severe Pain 7 days #40 tabs ondansetron 8 mg disintegrating 8 mg PO Q8H PRN nausea and 06/14/24 tablet vomiting #30 tabs Allergies Allergy/AdvReac Type Severity Reaction Status Date / Time aspirin Allergy Unknown Unknown,gi Verified 06/15/24 15:18 upset codeine Allergy Unknown Unknown Verified 06/15/24 15:18 hydrocodone Allergy Unknown Unknown Verified 06/15/24 15:18 Iodinated Contrast Media Allergy Unknown Unknown Verified 06/15/24 15:18 oxycodone Allergy Unknown Unknown Verified 06/15/24 15:18 atorvastatin [From Lipitor] Allergy Abdominal Verified 06/15/24 15:18 pain gabapentin Allergy ADR-Agitate Verified 06/15/24 15:18 d Review of Systems 2 Const: Denies: fever(s) or chills Card: Denies: chest pain Resp: Denies: dyspnea GI: Denies: abdominal pain : Denies: dysuria, urinary frequency or urinary urgency Musc: Denies: neck pain or back pain Skin/Breast: Denies: rash PFSH ED 2 PFSH: Medical History Primary osteoarthritis of right hip No pertinent past medical history neghx:dm,thyroid,pe PCP: Sanjeev Richardson Abnormal nuclear stress test Atherosclerosis of coronary artery of [place] heart without angina pectoris History of DVT (deep vein thrombosis) History of non-ST elevation myocardial infarction (NSTEMI) Hyperlipidemia HTN (hypertension) Atherosclerosis Surgical History Status post trigger finger release Status post carpal tunnel release H/O coronary angiogram (~03/31/18) reports heart stent-- she is on plavix H/O breast biopsy (~1997) Right breast-- benign Hx of spinal surgery S/P hysterectomy (~1968) Exploratory laparotomy which resulted in ALEX. Ovaries spared. Performed in [place]. S/P knee replacement 2011--left knee 2012--right knee S/P cholecystectomy (~1969) S/P blepharoplasty S/P shoulder surgery (~2016) Dr. Suazo S/P cataract extraction Family History Brother Hypertension Diabetes Cancer Chronic kidney disease (CKD) Mother Lung disease Breast cancer Sister Colon cancer Denies family history of Ovarian cancer CAD (coronary artery disease) Clotting disorder Dementia Suicide Anesthesia complication Bleeding disorder Uterine cancer Stroke Social History Smoking and tobacco/nicotine status: never used tobacco/nicotine Second hand smoke exposure: No Alcohol intake: never Substance/Drug Use: never Physical Exam 2 Const: GENERAL APPEARANCE: cooperative ORIENTATION/CONSCIOUSNESS: Yes awake HENMT: COMMON NORMALS: normocephalic, atraumatic and hearing grossly normal bilaterally HEAD & SCALP: normocephalic and atraumatic Resp: COMMON NORMALS: normal respiratory effort, No retractions, No use of accessory muscles and clear to auscultation bilaterally AUSCULTATION: clear to auscultation bilaterally Cardio: COMMON NORMALS: regular rate, regular rhythm and No murmurs present (Cardio) RATE: regular rate RHYTHM: regular rhythm GI: COMMON NORMALS: Soft to palpation and No hepatosplenomegaly present A USCULTATION: Yes normoactive bowel sounds PALPATION: Yes Soft to palpation, No Tenderness to palpation present (GI), No Guarding due to palpation present (GI) and Yes No hepatosplenomegaly present Extremity: COMMON NORMALS: normal to inspection, capillary refill normal, no clubbing, cyanosis or edema, no calf tenderness and no pedal edema Skin: COMMON NORMALS: no rashes or lesions noted GENERAL SKIN EXAM: no rashes or lesions noted OTHER: Skin incision right hip does not show any sign infection or dehiscence Course 2 Vital Signs: Vital signs: Vital Signs Temperature 98.1 F 06/16/24 04:15 Pulse Rate 88 06/16/24 11:15 Respiratory Rate 20 H 06/16/24 11:15 Blood Pressure 142/62 06/16/24 11:15 Pulse Oximetry 99 06/16/24 11:15 Oxygen Delivery Me thod Nasal Cannula 06/16/24 11:15 Oxygen Flow Rate 6 06/16/24 11:15 MDM - SOB/Dyspnea Medical Decision Making Patient has multiple issues ongoing. Patient has acute sepsis uncertain of etiology at this point. Acute kidney injury GI upper GI bleed with gastric outlet obstruction, ileus, pulmonary embolism with acute respiratory failure and hypoxia. Right heart strain due to pulmonary embolism. Hepatorenal syndrome due to pulmonary embolism in part due to her gastric and duodenal outlet obstructions. We initially anticoagulated patient based on her presenting signs and symptoms. CTA confirms presence of PE. She been given Protonix NG placed in the fluid obtained from the NG was positive for Gastroccult. Reviewed case with Dr. Mccloud who is on-call for surgery as well as Dr. Saxena is on-call for hospitalist will transfer. Patient is a Do Not Recussitate but the family does wish to consider interventions such as embolectomy if it becomes necessary or intervention with interventional radiology if GI bleeding worsens. She may also need more advanced endoscopy that is available at this facility. I discussed with the family and the patient that her prognosis is guarded since she is a Do Not Recussitate conservative therapy could be a consideration. After discussion and the family further reflecting on the issue they are requesting transfer. 1641 -attempting to arrange transfer to [facility] or [facility] in [place]. Family confirms they are requesting transfer to higher level of care and do not wish to treat with conservative care at this facility. Both [facility] and [facility] have declined to accept on transfer. Family still wishes to go to tertiary care center we will try [facility] per the request. Patient care was transitioned to fl at shift change. Consultation: Since that time I have spoken with [facility] transfer center and she is excepted to [facility] ICU by Dr. Baig. However there is no bed at this time. Consultation: I then spoke again with [facility] in [place] and ultimately after a couple of hours Dr. Chavarria has accepted the patient to the ICU there. However there are no beds there at this time either Reevaluation: patient has continued to have bloody output from her NG tube. Hemoglobin has gone from 10.8-8.6. I have ordered 2 units of blood. I spoke with the ICU doctor there at [facility] and she recommends stopping the heparin at this point because she is stable from a respiratory standpoint but continues to bleed. Lactate has come down to 2. Blood pressure is stabilized and she is no longer hypotensive and not requiring pressors. Consultation: I spoke with Dr. Quijano who is on-call for the hospitalist service to help manage the patient while we are waiting for a bed to become available and either [facility] or [facility] in [place]. We will follow his recommendations. Consultation: I spoke with Dr. Mccloud who is on-call for general surgery. Dr. Yarbrough had spoken with him earlier. He is a familiar with the patient. Since she is here and cannot leave he will see her in the morning and he may do endoscopy to see if there is anything that can be helped at this time. 06/16/2024 11:27 AM Resumed care at change of shift. Hospitalist notes reviewed and appreciated. Patient has been transfused a unit of packed red blood cells her heparin has been stopped. She is still requiring significant oxygen supplementation. Consultation from hospitalist appreciated. Family still wishes to have all options available to pursue should the patient worsen. Pulmonology/critical care, GI or interventional radiology and which are all things that may become necessary. We have called [facility] they have excepted the patient now has bed assignment at [facility] in [place] transportation arrangements are being made this morning labs reviewed patient continues to be critical some improvements her hemoglobin is stable. Her kidney function is slightly improved her bilirubin has normalized however her transaminases and alk phos continue to be elevated. Her lipase was also markedly elevated. She continues on Protonix and IV fluids. Medical Records I reviewed the patient's medical records. Lab Data I reviewed the patient's lab results. 06/16/24 06:48 06/16/24 08:02 Labs/Radiology: Radiology Impressions Chest/Abdomen/Pelvis CT 06/15/24 09:53 IMPRESSION: 1. Acute pulmonary embolus involving the RIGHT upper lobe pulmonary arteries described above. A few tiny filling defects in the LEFT subsegmental pulmonary arteries. 2. Mild evidence of RIGHT heart strain. 3. Distention of the duodenal C-loop with increased attenuation may present blood products with hematoma. Underlying mass not excluded. This results in proximal duodenal and gastric obstruction. Recommend follow-up to resolution or further evaluation with endoscopy. 4. Fluid distended stomach with air-fluid levels. Distention of the thoracic esophagus with small esophageal hernia. 5. Duodenal hematoma/mass results in obstruction of the common bile duct at the ampulla Vater with mild dilatation of the common bile duct. Prior cholecystectomy. Mild intrahepatic biliary ductal dilatation. 6. Gaseous distention of the transverse colon likely due to adynamic dynamic ileus. 7. Remainder of the colon and small bowel loops are decompressed. 8. Roman catheter. Notified Sina Yarbrough DO at 06/15/2024 11:41 AM. Chest X-Ray 06/15/24 12:24 IMPRESSION: Good enteric feeding tube positioning Laboratory Results WBC 27.12 10^3/uL (3.29-11.43) H 06/16/24 06:48 RBC 3.30 10^6/uL (3.85-5.65) L 06/16/24 06:48 Hgb 9.90 g/dL (11.27-16.99) L 06/16/24 06:48 Hct 30.2 % (36-47) L 06/16/24 06:48 MCV 91.5 fl (85-98) 06/16/24 06:48 MCH 30.0 pg (27-33) 06/16/24 06:48 MCHC 32.8 g/dL (30-55) 06/16/24 06:48 RDW 16.5 % (12.1-15.1) H 06/16/24 06:48 Plt Count 301 10^3/cmm (157-399) 06/16/24 06:48 MPV 11.6 fL (7.4-10.4) H 06/16/24 06:48 Neut % (Auto) 89.2 % 06/16/24 06:48 Lymph % (Auto) 5.2 % 06/16/24 06:48 [place] % (Auto) 4.2 % 06/16/24 06:48 Eos % (Auto) 0.0 % 06/16/24 06:48 Baso % (Auto) 0.2 % 06/16/24 06:48 Neut # (Auto) 24.17 10^3/uL (1.8-7.7) H 06/16/24 06:48 Lymph # (Auto) 1.4 10^3/uL (0.8-4.8) 06/16/24 06:48 [place] # (Auto) 1.2 10^3/uL (0.2-0.9) H 06/16/24 06:48 Eos # (Auto) 0.0 10^3/uL (0.0-0.8) 06/16/24 06:48 Baso # (Auto) 0.1 10^3/uL (0.0-0.1) 06/16/24 06:48 Nucleated RBC % (auto) 1.0 % 06/16/24 06:48 Nucleated RBCs # 0.3 /100WBC 06/16/24 06:48 APTT 61.8 SECONDS (23.9-36.7) H D 06/16/24 00:00 Specimen Type Arterial 06/15/24 10:26 Sample Site L brachial 06/15/24 10:26 ABG pH 7.37 (7.35-7.45) 06/15/24 10:26 ABG pCO2 34.3 mmHg (35-45) L 06/15/24 10:26 ABG pO2 152.0 mmHg (80.0-100.0) H 06/15/24 10:26 ABG HCO3 20.0 mmol/L (22-26) L 06/15/24 10:26 ABG O2 Saturation > 99.1 06/15/24 10:26 ABG Base Excess -4.7 mmol/L (-2.0-2.0) L 06/15/24 10:26 Koko Test Pos 06/15/24 10:26 A-a O2 Gradient Not Reportable 06/15/24 10:26 Hematocrit 27.9 % (37-47) L 06/15/24 10:26 Hgb O2 Saturation 98.4 % (95-100) 06/15/24 10:26 Carboxyhemoglobin 1.4 %THgb (0.4-20.1) 06/15/24 10:26 Methemoglobin 0.1 % (0.4-1.5) L 06/15/24 10:26 Total Hemoglobin 9.1 g/dL (12-16) L 06/15/24 10:26 Sodium 137.0 mmol/L (131-143) 06/15/24 10:26 Potassium 3.6 mmol/L (3.5-5.0) 06/15/24 10:26 Glucose 186.0 mg/dL (70-115) H 06/15/24 10:26 Ionized Calcium 1.1 mmol/L (1.1-1.4) 06/15/24 10:26 O2 Delivery Device Oxymask 06/15/24 10:26 O2 Liters/Min 15.0 % 06/15/24 10:26 Specimen Drawn By Maximino 06/15/24 10:26 Brilliandeer Lopper ID Anonymous 06/15/24 10:26 Sodium 141 mmol/L (136-145) 06/16/24 08:02 Potassium 3.4 mmol/L (3.5-5.1) L 06/16/24 08:02 Chloride 102 mmol/L (98-107) 06/16/24 08:02 Carbon Dioxide 27 mmol/L (22-29) 06/16/24 08:02 Anion Gap 15.4 (5-19) 06/16/24 08:02 BUN 34 mg/dL (8-23) H 06/16/24 08:02 Creatinine 1.0 mg/dL (0.5-0.9) H 06/16/24 08:02 GFR Calculation Not Reportable 06/16/24 08:02 Glucose 133 mg/dL (65-115) H 06/16/24 08:02 Calculated Osmolality 302 mOsm/kg (285-295) H 06/16/24 08:02 Lactic Acid 2.2 mmol/L (0.5-2.2) 06/15/24 20:59 Lactic Acid (Sepsis) 3.0 mmol/L (0.5-2.2) H 06/16/24 00:00 Calcium 7.2 mg/dL (8.5-10.5) L 06/16/24 08:02 Total Bilirubin 0.8 mg/dL (0.15-1.2) 06/16/24 08:02 AST 776 U/L (0-32) H 06/16/24 08:02 ALT 458 U/L (0-33) H 06/16/24 08:02 Alkaline Phosphatase 401 U/L (35-105) H 06/16/24 08:02 Creatine Kinase 232 U/L (26-192) H 06/15/24 23:59 Troponin T Baseline 1127 ng/L (0-10) H* 06/15/24 09:03 Troponin T 120 Minute 710.2 ng/L (0-10) H 06/15/24 11:12 Delta Troponin T -416.8 ABS# (0-10) L 06/15/24 11:12 Troponin T Hi Sens 6Hr 784.8 ng/L (0-10) H 06/15/24 14:57 Troponin T Hi Sens 6Hr Delta -342.2 ng/L (0-12) L 06/15/24 14:57 Total Protein 5.4 g/dL (6.6-8.7) L D 06/16/24 08:02 Albumin 2.9 g/dL (3.5-5.2) L 06/16/24 08:02 Globulin 2.5 g/dL (1.3-4.6) 06/16/24 08:02 Lipase 805 U/L (13-60) H 06/16/24 00:00 Urine Color Dark yellow (Yellow) A 06/15/24 12:59 Urine Appearance Clear (CLEAR) 06/15/24 12:59 Urine pH 5.0 (5-7) 06/15/24 12:59 Ur Specific [place] 1.066 (1.005-1.030) H 06/15/24 12:59 Urine Protein 2+ (Negative) A 06/15/24 12:59 Urine Glucose (UA) Trace (Normal) H 06/15/24 12:59 Urine Ketones Trace (Negative) 06/15/24 12:59 Urine Blood 2+ (Negative) A 06/15/24 12:59 Urine Nitrate Negative (Negative) 06/15/24 12:59 Urine Bilirubin 1+ (Negative) H 06/15/24 12:59 Urine Urobilinogen 2.0 mg/dL (Negative) H 06/15/24 12:59 Ur Leukocyte Esterase Negative (Negative) 06/15/24 12:59 Urine RBC 0-4 /hpf (0-2) H 06/15/24 12:59 Urine WBC 0-4 /hpf (0-5) H 06/15/24 12:59 Ur Squamous Epith Cells 15-25 /hpf (0-5) H 06/15/24 12:59 Amorphous Sediment Not Reportable 06/15/24 12:59 Urine Bacteria Trace /hpf (NONE) 06/15/24 12:59 Hyaline Casts 5-10 /lpf H 06/15/24 12:59 Fine Granular Casts 5-10 /lpf H 06/15/24 12:59 Urine Mucus 1+ /hpf 06/15/24 12:59 Gastric Occult Blood Positive (Negative) H 06/15/24 12:59 Hepatitis A IgM Ab Non-reactive (Nonreactive) 06/15/24 23:59 Hep Bs Antigen Non-reactive (Nonreactive) 06/15/24 23:59 Hep B Core IgM Ab Non-reactive (Nonreactive) 06/15/24 23:59 Hepatitis C Antibody Non-reactive (Nonreactive) 06/15/24 23:59 Blood Type O Positive 06/15/24 12:50 Rho(D) Type Rh positive 06/15/24 12:50 Antibody Screen Negative 06/15/24 12:50 Crossmatch See Detail 06/15/24 12:50 All radiology interpretation(s) finalized by discharge Discharge Plan Discharge Patient Disposition: Xfer Short-Term Hosp Clinical Impression: Pulmonary embolism, Right-sided heart failure, Acute kidney injury, Severe sepsis with septic shock, Hepatorenal syndrome, Acute upper GI bleeding, Elevated troponin I level, Anemia Condition: Stable Referrals: Sanjeev Richardson MD [Primary Care Provider] - Coding Level of Care Code ED Occupancy Specialist for Chg Fwd Documented by User: Marychuy Moralez MD 06/15/24 23:35 HPI - SOB/Dyspnea 2 General: Chief Complaint: Shortness of Breath/Dyspnea Stated Complaint: sob, n/v Time Seen by Provider: 06/15/24 08:38 Related Data Home Medications Medication Instructions Recorded Confirmed amlodipine 5 mg tablet 5 mg PO DAILY 12/02/23 06/15/24 tramadol 50 mg tablet 100 mg PO BID PRN Pain 04/01/24 06/15/24 bisacodyl 5 mg tablet,delayed 5 mg PO DAILY 05/25/24 06/15/24 release furosemide 20 mg tablet 20 mg PO DAILY 06/09/24 06/15/24 ropinirole 0.5 mg tablet 0.5 mg PO BID PRN Restless Leg(S) 06/09/24 06/15/24 Previous Rx's Medication Instructions Recorded nitroglycerin 0.4 mg sublingual 0.4 mg sublingual Q5M PRN Chest 06/02/23 tablet (Nitrostat) Pain #30 tabs metoprolol tartrate 50 mg tablet 50 mg PO BID #60 tabs 11/18/23 potassium chloride 8 mEq 8 meq PO DAILY 90 days #90 caps 12/02/23 capsule,extended release clopidogrel 75 mg tablet (Plavix) 75 mg PO DAILY #90 tabs 01/28/24 diclofenac sodium 50 mg 50 mg PO BID 30 days #60 tabs 05/03/24 tablet,delayed release acetaminophen 500 mg tablet 1,000 mg (2 x 500 mg) PO Q8H 15 06/10/24 days #90 tabs aspirin 325 mg tablet,delayed 325 mg PO DAILY 30 days #30 tabs 06/10/24 release celecoxib 200 mg capsule 200 mg PO DAILY 30 days #30 caps 06/10/24 oxycodone 5 mg tablet 5 - 10 mg (1 - 2 x 5 mg) PO Q4H 06/10/24 PRN Moderate To Severe Pain 7 days #40 tabs ondansetron 8 mg disintegrating 8 mg PO Q8H PRN nausea and 06/14/24 tablet vomiting #30 tabs Allergies Allergy/AdvReac Type Severity Reaction Status Date / Time aspirin Allergy Unknown Unknown,gi Verified 06/15/24 15:18 upset codeine Allergy Unknown Unknown Verified 06/15/24 15:18 hydrocodone Allergy Unknown Unknown Verified 06/15/24 15:18 Iodinated Contrast Media Allergy Unknown Unknown Verified 06/15/24 15:18 oxycodone Allergy Unknown Unknown Verified 06/15/24 15:18 atorvastatin [From Lipitor] Allergy Abdominal Verified 06/15/24 15:18 pain gabapentin Allergy ADR-Agitate Verified 06/15/24 15:18 d PFSH ED 2 PFSH: Medical History Primary osteoarthritis of right hip No pertinent past medical history neghx:dm,thyroid,pe PCP: Sanjeev Richardson Abnormal nuclear stress test Atherosclerosis of coronary artery of [place] heart without angina pectoris History of DVT (deep vein thrombosis) History of non-ST elevation myocardial infarction (NSTEMI) Hyperlipidemia HTN (hypertension) Atherosclerosis Surgical History Status post trigger finger release Status post carpal tunnel release H/O coronary angiogram (~03/31/18) reports heart stent-- she is on plavix H/O breast biopsy (~1997) Right breast-- benign Hx of spinal surgery S/P hysterectomy (~1968) Exploratory laparotomy which resulted in LAEX. Ovaries spared. Performed in [place]. S/P knee replacement 2011--left knee 2012--right knee S/P cholecystectomy (~1969) S/P blepharoplasty S/P shoulder surgery (~2016) Dr. Suazo S/P cataract extraction Family History Brother Hypertension Diabetes Cancer Chronic kidney disease (CKD) Mother Lung disease Breast cancer Sister Colon cancer Denies family history of Ovarian cancer CAD (coronary artery disease) Clotting disorder Dementia Suicide Anesthesia complication Bleeding disorder Uterine cancer Stroke Social History Smoking and tobacco/nicotine status: never used tobacco/nicotine Second hand smoke exposure: No Alcohol intake: never Substance/Drug Use: never Course 2 Vital Signs: Vital signs: Vital Signs Temperature 98.1 F 06/16/24 04:15 Pulse Rate 88 06/16/24 11:15 Respiratory Rate 20 H 06/16/24 11:15 Blood Pressure 142/62 06/16/24 11:15 Pulse Oximetry 99 06/16/24 11:15 Oxygen Delivery Me thod Nasal Cannula 06/16/24 11:15 Oxygen Flow Rate 6 06/16/24 11:15 MDM - SOB/Dyspnea Medical Decision Making Patient has multiple issues ongoing. Patient has acute sepsis uncertain of etiology at this point. Acute kidney injury GI upper GI bleed with gastric outlet obstruction, ileus, pulmonary embolism with acute respiratory failure and hypoxia. Right heart strain due to pulmonary embolism. Hepatorenal syndrome due to pulmonary embolism in part due to her gastric and duodenal outlet obstructions. We initially anticoagulated patient based on her presenting signs and symptoms. CTA confirms presence of PE. She been given Protonix NG placed in the fluid obtained from the NG was positive for Gastroccult. Reviewed case with Dr. Mccloud who is on-call for surgery as well as Dr. Saxena is on-call for hospitalist will transfer. Patient is a Do Not Recussitate but the family does wish to consider interventions such as embolectomy if it becomes necessary or intervention with interventional radiology if GI bleeding worsens. She may also need more advanced endoscopy that is available at this facility. I discussed with the family and the patient that her prognosis is guarded since she is a Do Not Recussitate conservative therapy could be a consideration. After discussion and the family further reflecting on the issue they are requesting transfer. 1641 -attempting to arrange transfer to [facility] or [facility] in [place]. Family confirms they are requesting transfer to higher level of care and do not wish to treat with conservative care at this facility. [facility] have declined to accept on transfer. Family still wishes to go to tertiary care center we will try [facility] per the request. Patient care was transitioned to fl at shift change. Consultation: Since that time I have spoken with [facility] and she is excepted to [facility] ICU by Dr. Baig. However there is no bed at this time. Consultation: I then spoke again with [facility] in [place] and ultimately after a couple of hours Dr. Chavarria has accepted the patient to the ICU there. However there are no beds there at this time either Reevaluation: patient has continued to have bloody output from her NG tube. Hemoglobin has gone from 10.8-8.6. I have ordered 2 units of blood. I spoke with the ICU doctor there at [facility] and she recommends stopping the heparin at this point because she is stable from a respiratory standpoint but continues to bleed. Lactate has come down to 2. Blood pressure is stabilized and she is no longer hypotensive and not requiring pressors. Consultation: I spoke with Dr. Quijano who is on-call for the hospitalist service to help manage the patient while we are waiting for a bed to become available and either [facility] or [facility] in [place]. We will follow his recommendations. Consultation: I spoke with Dr. Mccloud who is on-call for general surgery. Dr. Yarbrough had spoken with him earlier. He is a familiar with the patient. Since she is here and cannot leave he will see her in the morning and he may do endoscopy to see if there is anything that can be helped at this time. Lab Data 06/16/24 06:48 06/16/24 08:02 Labs/Radiology: Radiology Impressions Chest/Abdomen/Pelvis CT 06/15/24 09:53 IMPRESSION: 1. Acute pulmonary embolus involving the RIGHT upper lobe pulmonary arteries described above. A few tiny filling defects in the LEFT subsegmental pulmonary arteries. 2. Mild evidence of RIGHT heart strain. 3. Distention of the duodenal C-loop with increased attenuation may present blood products with hematoma. Underlying mass not excluded. This results in proximal duodenal and gastric obstruction. Recommend follow-up to resolution or further evaluation with endoscopy. 4. Fluid distended stomach with air-fluid levels. Distention of the thoracic esophagus with small esophageal hernia. 5. Duodenal hematoma/mass results in obstruction of the common bile duct at the ampulla Vater with mild dilatation of the common bile duct. Prior cholecystectomy. Mild intrahepatic biliary ductal dilatation. 6. Gaseous distention of the transverse colon likely due to adynamic dynamic ileus. 7. Remainder of the colon and small bowel loops are decompressed. 8. Roman catheter. Notified Sina Yarbrough DO at 06/15/2024 11:41 AM. Chest X-Ray 06/15/24 12:24 IMPRESSION: Good enteric feeding tube positioning Laboratory Results WBC 27.12 10^3/uL (3.29-11.43) H 06/16/24 06:48 RBC 3.30 10^6/uL (3.85-5.65) L 06/16/24 06:48 Hgb 9.90 g/dL (11.27-16.99) L 06/16/24 06:48 Hct 30.2 % (36-47) L 06/16/24 06:48 MCV 91.5 fl (85-98) 06/16/24 06:48 MCH 30.0 pg (27-33) 06/16/24 06:48 MCHC 32.8 g/dL (30-55) 06/16/24 06:48 RDW 16.5 % (12.1-15.1) H 06/16/24 06:48 Plt Count 301 10^3/cmm (157-399) 06/16/24 06:48 MPV 11.6 fL (7.4-10.4) H 06/16/24 06:48 Neut % (Auto) 89.2 % 06/16/24 06:48 Lymph % (Auto) 5.2 % 06/16/24 06:48 [place] % (Auto) 4.2 % 06/16/24 06:48 Eos % (Auto) 0.0 % 06/16/24 06:48 Baso % (Auto) 0.2 % 06/16/24 06:48 Neut # (Auto) 24.17 10^3/uL (1.8-7.7) H 06/16/24 06:48 Lymph # (Auto) 1.4 10^3/uL (0.8-4.8) 06/16/24 06:48 [place] # (Auto) 1.2 10^3/uL (0.2-0.9) H 06/16/24 06:48 Eos # (Auto) 0.0 10^3/uL (0.0-0.8) 06/16/24 06:48 Baso # (Auto) 0.1 10^3/uL (0.0-0.1) 06/16/24 06:48 Nucleated RBC % (auto) 1.0 % 06/16/24 06:48 Nucleated RBCs # 0.3 /100WBC 06/16/24 06:48 APTT 61.8 SECONDS (23.9-36.7) H D 06/16/24 00:00 Specimen Type Arterial 06/15/24 10:26 Sample Site L brachial 06/15/24 10:26 ABG pH 7.37 (7.35-7.45) 06/15/24 10:26 ABG pCO2 34.3 mmHg (35-45) L 06/15/24 10:26 ABG pO2 152.0 mmHg (80.0-100.0) H 06/15/24 10:26 ABG HCO3 20.0 mmol/L (22-26) L 06/15/24 10:26 ABG O2 Saturation > 99.1 06/15/24 10:26 ABG Base Excess -4.7 mmol/L (-2.0-2.0) L 06/15/24 10:26 Koko Test Pos 06/15/24 10:26 A-a O2 Gradient Not Reportable 06/15/24 10:26 Hematocrit 27.9 % (37-47) L 06/15/24 10:26 Hgb O2 Saturation 98.4 % (95-100) 06/15/24 10:26 Carboxyhemoglobin 1.4 %THgb (0.4-20.1) 06/15/24 10:26 Methemoglobin 0.1 % (0.4-1.5) L 06/15/24 10:26 Total Hemoglobin 9.1 g/dL (12-16) L 06/15/24 10:26 Sodium 137.0 mmol/L (131-143) 06/15/24 10:26 Potassium 3.6 mmol/L (3.5-5.0) 06/15/24 10:26 Glucose 186.0 mg/dL (70-115) H 06/15/24 10:26 Ionized Calcium 1.1 mmol/L (1.1-1.4) 06/15/24 10:26 O2 Delivery Device Oxymask 06/15/24 10:26 O2 Liters/Min 15.0 % 06/15/24 10:26 Specimen Drawn By Maximino 06/15/24 10:26 Brilliandeer Lopper ID Anonymous 06/15/24 10:26 Sodium 141 mmol/L (136-145) 06/16/24 08:02 Potassium 3.4 mmol/L (3.5-5.1) L 06/16/24 08:02 Chloride 102 mmol/L (98-107) 06/16/24 08:02 Carbon Dioxide 27 mmol/L (22-29) 06/16/24 08:02 Anion Gap 15.4 (5-19) 06/16/24 08:02 BUN 34 mg/dL (8-23) H 06/16/24 08:02 Creatinine 1.0 mg/dL (0.5-0.9) H 06/16/24 08:02 GFR Calculation Not Reportable 06/16/24 08:02 Glucose 133 mg/dL (65-115) H 06/16/24 08:02 Calculated Osmolality 302 mOsm/kg (285-295) H 06/16/24 08:02 Lactic Acid 2.2 mmol/L (0.5-2.2) 06/15/24 20:59 Lactic Acid (Sepsis) 3.0 mmol/L (0.5-2.2) H 06/16/24 00:00 Calcium 7.2 mg/dL (8.5-10.5) L 06/16/24 08:02 Total Bilirubin 0.8 mg/dL (0.15-1.2) 06/16/24 08:02 AST 776 U/L (0-32) H 06/16/24 08:02 ALT 458 U/L (0-33) H 06/16/24 08:02 Alkaline Phosphatase 401 U/L (35-105) H 06/16/24 08:02 Creatine Kinase 232 U/L (26-192) H 06/15/24 23:59 Troponin T Baseline 1127 ng/L (0-10) H* 06/15/24 09:03 Troponin T 120 Minute 710.2 ng/L (0-10) H 06/15/24 11:12 Delta Troponin T -416.8 ABS# (0-10) L 06/15/24 11:12 Troponin T Hi Sens 6Hr 784.8 ng/L (0-10) H 06/15/24 14:57 Troponin T Hi Sens 6Hr Delta -342.2 ng/L (0-12) L 06/15/24 14:57 Total Protein 5.4 g/dL (6.6-8.7) L D 06/16/24 08:02 Albumin 2.9 g/dL (3.5-5.2) L 06/16/24 08:02 Globulin 2.5 g/dL (1.3-4.6) 06/16/24 08:02 Lipase 805 U/L (13-60) H 06/16/24 00:00 Urine Color Dark yellow (Yellow) A 06/15/24 12:59 Urine Appearance Clear (CLEAR) 06/15/24 12:59 Urine pH 5.0 (5-7) 06/15/24 12:59 Ur Specific [place] 1.066 (1.005-1.030) H 06/15/24 12:59 Urine Protein 2+ (Negative) A 06/15/24 12:59 Urine Glucose (UA) Trace (Normal) H 06/15/24 12:59 Urine Ketones Trace (Negative) 06/15/24 12:59 Urine Blood 2+ (Negative) A 06/15/24 12:59 Urine Nitrate Negative (Negative) 06/15/24 12:59 Urine Bilirubin 1+ (Negative) H 06/15/24 12:59 Urine Urobilinogen 2.0 mg/dL (Negative) H 06/15/24 12:59 Ur Leukocyte Esterase Negative (Negative) 06/15/24 12:59 Urine RBC 0-4 /hpf (0-2) H 06/15/24 12:59 Urine WBC 0-4 /hpf (0-5) H 06/15/24 12:59 Ur Squamous Epith Cells 15-25 /hpf (0-5) H 06/15/24 12:59 Amorphous Sediment Not Reportable 06/15/24 12:59 Urine Bacteria Trace /hpf (NONE) 06/15/24 12:59 Hyaline Casts 5-10 /lpf H 06/15/24 12:59 Fine Granular Casts 5-10 /lpf H 06/15/24 12:59 Urine Mucus 1+ /hpf 06/15/24 12:59 Gastric Occult Blood Positive (Negative) H 06/15/24 12:59 Hepatitis A IgM Ab Non-reactive (Nonreactive) 06/15/24 23:59 Hep Bs Antigen Non-reactive (Nonreactive) 06/15/24 23:59 Hep B Core IgM Ab Non-reactive (Nonreactive) 06/15/24 23:59 Hepatitis C Antibody Non-reactive (Nonreactive) 06/15/24 23:59 Blood Type O Positive 06/15/24 12:50 Rho(D) Type Rh positive 06/15/24 12:50 Antibody Screen Negative 06/15/24 12:50 Crossmatch See Detail 06/15/24 12:50 Discharge Plan Discharge Patient Disposition: Xfer Short-Term Hosp Clinical Impression: Pulmonary embolism, Right-sided heart failure, Acute kidney injury, Severe sepsis with septic shock, Hepatorenal syndrome, Acute upper GI bleeding, Elevated troponin I level, Anemia Condition: Stable Referrals: Sanjeev Richardson MD [Primary Care Provider] - Coding Level of Care Code 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
--- NOTE | 2024-06-15 08:56 | XRR_ITS ---
PROCEDURE INFORMATION: Exam: XR Chest Exam date and time: 06/15/2024 9:00 AM Age: 84 years old Clinical indication: Cough and dyspnea and shortness of breath; Additional info: Dyspnea/cough TECHNIQUE: Imaging protocol: Radiologic exam of the chest. Views: 1 view. COMPARISON: CR XR chest 1V [id number] 10/21/2017 11:29 PM FINDINGS: Lungs: Unremarkable. No consolidation or mass. Pleural spaces: Unremarkable. No pleural effusion. No pneumothorax. Heart/Mediastinum: Unremarkable. No cardiomegaly. Bones/joints: Surgical anchors are noted in the right humeral head. No acute bony abnormality noted. XR/XR chest 1V portable [id number] IMPRESSION: No acute findings.
--- NOTE | 2024-06-15 09:00 | PC.NURSE ---
upon pt arrival to unit, pt requested to this nurse to have compressions if deemed necessary. pt does have DNR paperwork, but family and pt decided against at this time, pt AOx4 at time of decision.
[2024-06-15] MEDS: ipratropium-albuterol 3 mL Neb INHALATION (09:01)
[2024-06-15 09:22] LABS: Basophils % 0.2 %; Hematocrit 33.8 % (36-47); Lymphocytes # 2.3 10^3/uL (0.8-4.8); Lymphocytes % 9.8 %; Mean Corpuscular Hemoglobin 30.7 pg (27-33); Mean Platelet Volume 11.3 fL (7.4-10.4); Monocytes # 1.2 10^3/uL (0.2-0.9); Neutrophils # 19.32 10^3/uL (1.8-7.7); Neutrophils % 83.1 %; Nucleated Red Blood Cells # 0.1 /100WBC; Nucleated Red Blood Cells % 0.5 %; Platelet Count 432 10^3/cmm (157-399); Red Blood Count 3.52 10^6/uL (3.85-5.65); Red Cell Distribution Width 14.6 % (12.1-15.1); White Blood Count 23.23 10^3/uL (3.29-11.43)
[2024-06-15] MEDS: sodium chloride 0.9% 1,000 ML 999 ML IV (09:32)
[2024-06-15] MEDS: ondansetron 2 mg/ML SDV 2 mL 4 MG IVP (09:32)
[2024-06-15 09:49] LABS: Troponin(5th) Baseline 1127 ng/L (0-10)
[2024-06-15 09:50] LABS: Alanine Aminotransferase 230 U/L (0-33); Albumin Level 3.5 g/dL (3.5-5.2); Alkaline Phosphatase 662 U/L (35-105); Anion Gap 33.1 (5-19); Blood Urea Nitrogen 27 mg/dL (8-23); Calcium 9.7 mg/dL (8.5-10.5); Carbon Dioxide 24 mmol/L (22-29); Chloride 83 mmol/L (98-107); Creatinine Clr Calc Pharmacy 30.9882; Globulin 3.3 g/dL (1.3-4.6); Glucose 238 mg/dL (65-115); Osmolality Calculated 295 mOsm/kg (285-295); Potassium 4.1 mmol/L (3.5-5.1); Sodium 136 mmol/L (136-145); Total Bilirubin 3.8 mg/dL (0.15-1.2); Total Protein 6.8 g/dL (6.6-8.7)
--- NOTE | 2024-06-15 09:50 | PC.PHAR ---
patient states she took am meds, but daughter states she cant get her to take her meds
[2024-06-15 09:51] LABS: Aspartate Amino Transferase 523 U/L (0-32)
--- NOTE | 2024-06-15 09:51 | ECG_ITS ---
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 Measurements Intervals [place] Rate: 79 P: 76 [place]: 146 QRS: -5 QRSD: 109 T: 101 QT: 396 QTc: 456 Interpretive Statements SINUS RHYTHM WITH OCCASIONAL VENTRICULAR PREMATURE COMPLEXES POSSIBLE ANTERIOR MYOCARDIAL INFARCTION , OF INDETERMINATE AGE [30 ms Q WAVE IN V3/V4, OR R < 0.2 mV IN V4] MODERATE T-WAVE ABNORMALITY, CONSIDER LATERAL ISCHEMIA [-0.1+ mV T-WAVE IN I/aVL/V5/V6] Compared to ECG 06/15/2024 08:35:04 Ventricular premature complex(es) now present Sinus tachycardia no longer present Myocardial infarct finding still present T-wave abnormality still present Possible ischemia still present Electronically Signed On 06-15-2024 23:13:37 CDT by Vj Carreno M.D. [id number]
--- NOTE | 2024-06-15 09:53 | CT_ITS ---
WS: [id number] CTA CHEST WITH ABDOMEN AND PELVIS TECHNIQUE: enhanced CTA of the chest, abdomen, and pelvis with coronal and sagittal reformatted imag es and additional MIP Images. CLINICAL INFORMATION: hypoxia, elevated tramnsaminase DLP: 1428.[address] scans at [facility] use at least one of these dose optimization techniques: automated e xposure control; mA and/or kV adjustment per patient size (includes targeted exams where dose is matc hed to clinical indication); or iterative reconstruction. FINDINGS: Filling defects compatible with acute pulmonary embolus in the RIGHT upper lobe proximal segmental pu lmonary artery with poor filling of the segmental and subsegmental RIGHT upper lobe branches. Proxima l main pulmonary arteries are patent. Evidence of mild RIGHT heart strain. Few tiny filling defects i n the LEFT subsegmental pulmonary arteries. Chronic emphysematous changes. Esophageal hiatal hernia with air-fluid level. Distended thoracic esophagus with air-fluid levels. Fl uid distention of the stomach. Marked fluid distention of the stomach with air-fluid levels and small esophageal hernia. Air-fluid l evels in the distal stomach extending into the proximal duodenum. Increased attenuation intraluminal products in the duodenal C-loop with distention resulting in stomach and proximal duodenal obstructio n. This may represent blood products with hematoma. Underlying mass not excluded. Recommend follow-up with endoscopy if not resolved with NG tube. Area of duodenal obstruction is at ampulla Vater likely resulting in common bile duct obstruction. Prior cholecystectomy. Dilatation of the common bile duct extending to the ampulla of Vater. Mild intrahepatic biliary ductal dilatation. Pancreatic head appears normal. Mild fatty atrophy of the pancreas. Normal jejunum. Ileal small bowel loops are normal. Roman catheter. Sigmoid diverticulosis. No evidence of acute diverticulitis. Gaseo us distention of the transverse colon. RIGHT colon as normal. Adrenal glands are normal. No hydronephrosis. Normal renal parenchymal enhancement. Moderate aortic a theromatous disease. Celiac and SMA are patent. Normal caliber abdominal aorta. RIGHT ENIO degrades some images of the pelvis. Prior postoperative changes pedicle screw fixation lumb ar spine L4 and L5 with interbody fusion graft. CT/CT angio chest w abd pel w con IMPRESSION: 1. Acute pulmonary embolus involving the RIGHT upper lobe pulmonary arteries d escribed above. A few tiny filling defects in the LEFT subsegmental pulmonary a rteries. 2. Mild evidence of RIGHT heart strain. 3. Distention of the duodenal C-loop with increased attenuation may present bl ood products with hematoma. Underlying mass not excluded. This results in proxi mal duodenal and gastric obstruction. Recommend follow-up to resolution or furt her evaluation with endoscopy. 4. Fluid distended stomach with air-fluid levels. Distention of the thoracic e sophagus with small esophageal hernia. 5. Duodenal hematoma/mass results in obstruction of the common bile duct at th e ampulla Vater with mild dilatation of the common bile duct. Prior cholecystec donavon. Mild intrahepatic biliary ductal dilatation. 6. Gaseous distention of the transverse colon likely due to adynamic dynamic i leus. 7. Remainder of the colon and small bowel loops are decompressed. 8. Roman catheter. Notified Sina Yarbrough DO at 06/15/2024 11:41 AM.
[2024-06-15] MEDS: heparin 5,000 unit/mL INJ 1 mL IVP (10:12)
[2024-06-15] MEDS: heparin drip 25,000 UNIT/500 ML PREMIX 22.23 UNIT IV (10:17)
[2024-06-15] MEDS: piperacillin-tazobactam 3.375 GM in sodium chloride 0.9% (plus) 50 ML IV (10:20)
[2024-06-15 10:36] LABS: ABG PCO2 34.3 mmHg (35-45); ABG PH Result 7.37 (7.35-7.45); Arterial Blood Gas Hematocrit 27.9 % (37-47); Base Excess ABG -4.7 mmol/L (-2.0-2.0); Blood Gas Allen Test Pos; Blood Gas Operator Identificat Anonymous; Blood Gas Sample Type Arterial; Carboxyhemoglobin 1.4 %THgb (0.4-20.1); HGB O2 Sat 98.4 % (95-100); Ionized Calcium Level - ABG 1.1 mmol/L (1.1-1.4); Methemoglobin 0.1 % (0.4-1.5); Oxygen Saturation ABG > 99.1; Potassium Level - ABG 3.6 mmol/L (3.5-5.0); Total Hemoglobin 9.1 g/dL (12-16)
--- NOTE | 2024-06-15 10:46 | ECG_ITS ---
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 Measurements Intervals [place] Rate: 82 P: 80 [place]: 141 QRS: -2 QRSD: 108 T: 92 QT: 393 QTc: 459 Interpretive Statements SINUS RHYTHM POSSIBLE ANTERIOR MYOCARDIAL INFARCTION , OF INDETERMINATE AGE [30 ms Q WAVE IN V3/V4, OR R < 0.2 mV IN V4] Compared to ECG 06/15/2024 09:51:25 Ventricular premature complex(es) no longer present T-wave abnormality no longer present Possible ischemia no longer present Myocardial infarct finding still present Electronically Signed On 06-15-2024 23:12:22 CDT by Vj Carreno M.D. [id number]
[2024-06-15] MEDS: methylPREDNISolone sod succ 40 mg/mL INJ IVP (10:50)
[2024-06-15] MEDS: diphenhydrAMINE 50 mg/mL SDV 1mL 25 MG IVP (10:50)
[2024-06-15] MEDS: vancomycin 1,000 MG in sodium chloride 0.9% 250 ML 250 MG IV (10:52)
[2024-06-15 11:06] LABS: Reflex Lactate Order REFLEX LACTIC ORDERD
--- NOTE | 2024-06-15 11:09 | PC.NURSE ---
No urine output with roman placement, bladder scan showed 0mL urine. Dr. Yarbrough notified.
[2024-06-15] MEDS: iohexol 350 mg/mL 500 mL Btl (per mL) IV (11:11)
[2024-06-15 11:19] LABS: Oxygen Device OXYMASK
[2024-06-15 11:20] LABS: Blood Gas Drawn By WALCI; Blood Gas Sample Site L BRACHIAL
[2024-06-15 11:50] LABS: Troponin 5 2HR 710.2 ng/L (0-10); Troponin 5 2HR Delta -416.8 ABS# (0-10)
--- NOTE | 2024-06-15 12:24 | XRR_ITS ---
PROCEDURE INFORMATION: Exam: XR Chest Exam date and time: 06/15/2024 12:28 PM Age: 84 years old Clinical indication: Device placement; Ng tube; Prior surgery; Surgery date: 6+ months; Surgery type: Hip/spine/gb/hyst/knee; Additional info: Ng tube placement TECHNIQUE: Imaging protocol: Radiologic exam of the chest. Views: 1 view. COMPARISON: CT angio chest w abd pel w con 06/15/2024 10:56 AM FINDINGS: Tubes, catheters and devices: The feeding tube is in good position within the stomach. Lungs: Unremarkable. No consolidation or mass. Pleural spaces: Unremarkable. No pleural effusion. No pneumothorax. Heart/Mediastinum: Unremarkable. No cardiomegaly. Bones/joints: Unremarkable. XR/XR chest 1V portable [id number] IMPRESSION: Good enteric feeding tube positioning
[2024-06-15] MEDS: pantoprazole 40 mg SDV 80 MG IVP (12:45)
[2024-06-15 12:52] LABS: Lactic Acid level (Lactate) 12.7 mmol/L (0.5-2.2)
--- NOTE | 2024-06-15 12:56 | ECG_ITS ---
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 Measurements Intervals [place] Rate: 89 P: 76 [place]: 135 QRS: -5 QRSD: 108 T: 90 QT: 386 QTc: 472 Interpretive Statements SINUS RHYTHM POSSIBLE ANTERIOR MYOCARDIAL INFARCTION , OF INDETERMINATE AGE [30 ms Q WAVE IN V3/V4, OR R < 0.2 mV IN V4] Non Specific ST-T changes Compared to ECG 06/15/2024 10:46:36 No significant changes Electronically Signed On 06-15-2024 23:01:48 CDT by Vj Carreno M.D. [id number]
--- NOTE | 2024-06-15 13:14 | PC.NURSE ---
urine output 400mL @1300
--- NOTE | 2024-06-15 13:14 | PC.NURSE ---
Gastric output 1200mL @1300
[2024-06-15 13:15] LABS: Gastricult Occult Blood Positive (Negative)
[2024-06-15 13:16] LABS: Bilirubin Urine 1+ (Negative); Blood Urine 2+ (Negative); Glucose Urine UA Trace (Normal); Ketones Urine Trace (Negative); Leukocyte Esterase Urine Negative (Negative); Nitrate Urine Negative (Negative); Protein Urine 2+ (Negative); Urine Appearance Clear (CLEAR); Urine Color Dark Yellow (Yellow)
[2024-06-15 13:21] LABS: Add Urine Microscopic? YES
[2024-06-15 13:25] LABS: Partial Thromboplastin Time 142.8 SECONDS (23.9-36.7)
[2024-06-15 13:33] LABS: Specific Gravity, Urine 1.066 (1.005-1.030); UA Slide Review UA Slide Review Perf
[2024-06-15 13:34] LABS: UA Manual Slide Review YES
[2024-06-15 13:35] LABS: Add Urine Culture? No; Bacteria Urine TRACE /hpf; Mucus Urine 1+ /hpf; RBC Urine 0-4 /hpf (0-2); Squamous Epithelial Cell Urine 15-25 /hpf (0-5); WBC Urine 0-4 /hpf (0-5)
[2024-06-15] MEDS: sodium chloride 0.9% 1,000 ML 125 ML IV (15:11)
[2024-06-15 16:19] LABS: Troponin 5 6HR 784.8 ng/L (0-10); Troponin 5 6HR Delta -342.2 ng/L (0-12)
[2024-06-15 17:24] LABS: Basophils # 0.1 10^3/uL (0.0-0.1); Basophils % 0.3 %; Hematocrit 29.6 % (36-47); Lymphocytes # 1.3 10^3/uL (0.8-4.8); Lymphocytes % 4.6 %; Mean Corpuscular HGB Conc 32.4 g/dL (30-55); Mean Corpuscular Hemoglobin 31.3 pg (27-33); Mean Corpuscular Volume 96.4 fl (85-98); Monocytes # 1.4 10^3/uL (0.2-0.9); Monocytes % 4.9 %; Neutrophils # 24.32 10^3/uL (1.8-7.7); Neutrophils % 88.2 %; Nucleated Red Blood Cells # 0.2 /100WBC; Nucleated Red Blood Cells % 0.9 %; Platelet Count 311 10^3/cmm (157-399); Red Blood Count 3.07 10^6/uL (3.85-5.65); Red Cell Distribution Width 14.9 % (12.1-15.1); White Blood Count 27.57 10^3/uL (3.29-11.43)
[2024-06-15 17:48] LABS: Partial Thromboplastin Time 129.1 SECONDS (23.9-36.7)
--- NOTE | 2024-06-15 18:08 | PC.NURSE ---
Did not administer 6hr heparin bolus @1800 d/t PTT result of 129.1, ED physician notified.
--- NOTE | 2024-06-15 18:49 | PC.NURSE ---
per UC and ED provider Jessica in [place], [place] declined acceptance, see provider note.
[2024-06-15] MEDS: morphine 4 mg/mL SDV 1 mL 2 MG IVP (20:20)
[2024-06-15 21:10] LABS: Basophils % 0.1 %; Hematocrit 26.7 % (36-47); Lymphocytes # 1.3 10^3/uL (0.8-4.8); Lymphocytes % 4.8 %; Mean Corpuscular HGB Conc 32.2 g/dL (30-55); Mean Corpuscular Hemoglobin 30.2 pg (27-33); Mean Corpuscular Volume 93.7 fl (85-98); Mean Platelet Volume 11.2 fL (7.4-10.4); Monocytes # 1.1 10^3/uL (0.2-0.9); Neutrophils # 24.42 10^3/uL (1.8-7.7); Neutrophils % 89.7 %; Nucleated Red Blood Cells # 0.2 /100WBC; Nucleated Red Blood Cells % 0.8 %; Platelet Count 340 10^3/cmm (157-399); Red Blood Count 2.85 10^6/uL (3.85-5.65); Red Cell Distribution Width 15.3 % (12.1-15.1); White Blood Count 27.27 10^3/uL (3.29-11.43)
[2024-06-15 21:27] LABS: Lactic Sepsis W/Reflex 2.2 mmol/L (0.5-2.2)
[2024-06-15] MEDS: pantoprazole 40 MG in sodium chloride 0.9% (plus) 100 ML 20 MG IV (22:45)
[2024-06-15 22:56] LABS: Reflex Lactate Order REFLEX LACTIC ORDERD
[2024-06-16] VITALS (23 sets, daily range): BP systolic 110–148; BP diastolic 47–103; PULSE 88–115; RESP 16–23; TEMP 36.7–36.9; O2SAT 92–100
--- NOTE | 2024-06-16 00:05 | USCV_ITS ---
Flakita Sutherland Age: 84 Gender: F : 1940 Exam Date: 06/16/2024 09:01 Ordering Phys: Fahad Quijano MD Technologist: [place] [facility]ication: pe BP: / HR: 106 Rhythm: Sinus Technical Quality: Adequate MEASUREMENTS (Male / Female) Normal Values 2D ECHO LV Diastolic Diameter PLAX 4.0 cm 4.2 - 5.9 / 3.9 - 5.3 cm IVS Diastolic Thickness 1.6 cm 0.6 - 1.0 / 0.6 - 0.9 cm IVS Systolic Thickness 2.0 cm LVPW Diastolic Thickness 1.2 cm 0.6 - 1.0 / 0.6 - 0.9 cm LVPW Systolic Thickness 1.8 cm LVOT Diameter 2.4 cm LV Ejection Fraction 2D Teich 77.1 % LV Ejection Fraction MOD 4C 54.1 % LV Ejection Fraction MOD 2C 50.6 % LV Ejection Fraction 2C AL 52.1 % LA Diameter 2.8 cm RA Systolic Volume 4C AL 38.3 ml RA Systolic Volume 4C MOD 37.8 ml Aorta at Sinotubular Diameter 2.6 cm M-MODE LA Ao Ratio MM 1.2 AV Cusp Separation MM 2.3 cm DOPPLER AV Peak Velocity 185.0 cm/s LVOT Peak Velocity 126.0 cm/s AV Area Cont Eq vti 3.3 cm squared AV Area Cont Eq pk 3.2 cm squared MV Peak Velocity 149.0 cm/s MV Area PHT 5.9 cm squared Mitral E to A Ratio 0.6 TV Peak Velocity 222.5 cm/s TR Peak Velocity 273.0 cm/s TR Peak Gradient 29.8 mmHg TV Peak E Velocity 92.0 cm/s Right Atrial Pressure 3.0 mmHg Pulmonary Artery Systolic Pressu 32.8 mmHg PV Peak Velocity 225.0 cm/s FINDINGS Left Ventricle Normal left ventricular size and systolic function, EF 55%, visual .moderateleft ventricular hypertrophy. Grade I/IV diastolic dysfunction (abnormal relaxation filling pattern), normal to mildly elevated filling pressures. Mild hypokinesia of the apical septal segment Right Ventricle The right ventricle is normal in size and function. Right Atrium The right atrium is normal in size. Left Atrium Mildly increased left atrial size. Mitral Valve Mild mitral annular calcification. Trace mitral valve regurgitation. Aortic Valve Thickened aortic valve. Mild aortic valve regurgitation. Tricuspid Valve Trace tricuspid valve regurgitation. Pulmonic Valve Trace pulmonary valve regurgitation. Pericardium Normal pericardium without effusion. Aorta Normal ascending aorta dimension. IVC Inferior vena cava not visualized. CONCLUSIONS Normal left ventricular size and systolic function, EF 55%, visual .moderateleft ventricular hypertrophy. Grade I/IV diastolic dysfunction (abnormal relaxation filling pattern), normal to mildly elevated filling pressures. Mild hypokinesia of the apical septal segment. Mildly increased left atrial size. Mild mitral annular calcification. Trace mitral valve regurgitation. Thickened aortic valve. Mild aortic valve regurgitation. Trace tricuspid valve regurgitation. Estimated pulmonary artery peak systolic pressure 33 mmHg Trace pulmonary valve regurgitation. There is no pericardial effusion. There are no intracardiac masses. Compared to the study from 10/22/2017, there may not be a significant change except for the mild apical septal hypokinesia Dr Vj Carreno MD FACC (Electronically Signed) Final Date: 16 June 2024 13:28 S
--- NOTE | 2024-06-16 00:08 | PM.CONSULT ---
Providers/Reason For Consult Consulting Physician/Specialty*: Hospital medicine Reason for Consult*: UGIB, PE, MARIE Primary Care Provider: Sanjeev Richardson MD History of Present Illness History of Present Illness Pleasant 84-year-old lady with remote history of DVT, history of CAD, PCI with stenting of RCA in 2018, at that same time with finding of LCx 50% stenosis as well as 50 to 60% stenosis of LAD, usually on Plavix, also history of HTN, HLD, osteoarthritis underwent right ENIO on 06/09, on aspirin VTE prophylaxis, was brought to ED by EMS after complaint of shortness of breath and nausea with vomiting overnight, reported saturation 60% on room air. Was started on nonrebreather initially requiring 60 L of oxygen, with respiratory alkalosis. With report of dark stool as well as coffee-ground emesis. She has had abdominal pain across the mid abdomen. In ER initially hypotensive, blood pressure 91/53, up to 16 L of oxygen requirement, afebrile, with tachypnea 22-24, leukocytosis 27, with acute anemia hemoglobin down to 10.8 from 12 on 06/10, with downtrend to 8.6 12 hours later from this morning to this evening. Positive Gastroccult. Platelets normal. With lactic acid of 12.7. MARIE creatinine 1.3, BUN 27. With new abnormalities of liver parameters, T. bili 3.8, AST 523, ALT 230, alk phos 662. With baseline troponin elevated at 1127. Decrease down to 710, then 784 at 2 and 6 hours respectively. UA with 0-4 RBC, 0-4 WBC. Hyaline casts. Fine granular casts. Chest x-ray unremarkable. CT abdomen pelvis with acute PE involving right upper lobe pulmonary arteries. Few tiny filling defects also in the left subsegmental pulmonary arteries. Mild evidence of right heart strain. Distention of duodenal C-loop with increased attenuation may be present blood products with hematoma, underlying mass not excluded. Resulting in proximal duodenal and gastric obstruction. Recommended follow-up with endoscopy. Fluid distended stomach with air-fluid levels. Distention of the thoracic esophagus with small esophageal hernia. Duodenal hematoma/mass results in obstruction of the common bile duct at the ampulla Vatter with modulation of the, bile neck. Prior cholecystectomy. Mild intrahepatic biliary ductal dilation. Gaseous distention of the transverse colon likely adynamic ileus. Remainder of colon and small bowel loops are decompressed. In ER she initially received breathing treatment, fluid bolus, Zofran, empiric antibiotic with Zosyn, vancomycin, 1 dose of Solu-Medrol. Initially started on heparin drip. Received 80 mg Protonix IV. NGT was placed with suction of further coffee-ground containing brown liquid. Findings were discussed with on-call team at that time including general surgeon, and with patient and family wanting to pursue further assessment and treatment, recommendation was made for transfer to higher level care facility. Currently on the waiting list to [facility] where she was accepted. Heparin drip had to be discontinued with downtrend in hemoglobin, continued upper GI bleed per discussion of ER physician with information technology analyst, and she was started on Protonix drip. Blood pressures did show improvement, has not required pressors so far. Oxygenation so far with improvement down to 4 L requirement on nasal simple mask. Lactic acid with downtrend down to 2.2. She is currently receiving RBC transfusion. Review of Systems Const: Denies: fever(s), chills, body aches or malaise ENMT: Reports: dry mouth and other; Denies: throat pain, oral sores or ear or mastoid pain Card: Denies: chest pain, edema, pre-syncope or dyspnea on exertion Resp: Reports: productive cough; Denies: dyspnea, change in phlegm color or hemoptysis GI: Reports: abdominal pain, nausea, vomiting, coffee ground emesis and melena; Denies: diarrhea, constipation or hematochezia : Denies: flank pain, urinary frequency or hematuria Musc: Reports: other (No bleeding or drainage at the surgical wound at right hip.); Denies: back pain, joint swelling or joint redness Skin/Breast: Denies: rash Neuro: Denies: headache(s) or confusion Medications/Allergies Home Medications Medication Instructions Recorded Confirmed Last Taken Type nitroglycerin 0.4 mg sublingual 0.4 mg sublingual Q5M PRN Chest 06/02/23 06/15/24 Unknown Rx tablet (Nitrostat) Pain #30 tabs metoprolol tartrate 50 mg tablet 50 mg PO BID #60 tabs 11/18/23 06/15/24 06/15/24 Rx amlodipine 5 mg tablet 5 mg PO DAILY 12/02/23 06/15/24 06/15/24 History potassium chloride 8 mEq 8 meq PO DAILY 90 days #90 caps 12/02/23 06/15/24 06/15/24 Rx capsule,extended release clopidogrel 75 mg tablet (Plavix) 75 mg PO DAILY #90 tabs 01/28/24 06/15/24 06/15/24 Rx tramadol 50 mg tablet 100 mg PO BID PRN Pain 04/01/24 06/15/24 06/08/24 History diclofenac sodium 50 mg 50 mg PO BID 30 days #60 tabs 05/03/24 06/15/24 06/15/24 Rx tablet,delayed release bisacodyl 5 mg tablet,delayed 5 mg PO DAILY 05/25/24 06/15/24 06/15/24 History release furosemide 20 mg tablet 20 mg PO DAILY 06/09/24 06/15/24 06/15/24 History ropinirole 0.5 mg tablet 0.5 mg PO BID PRN Restless Leg(S) 06/09/24 06/15/24 06/08/24 History acetaminophen 500 mg tablet 1,000 mg (2 x 500 mg) PO Q8H 15 06/10/24 06/15/24 Unknown Rx days #90 tabs aspirin 325 mg tablet,delayed 325 mg PO DAILY 30 days #30 tabs 06/10/24 06/15/24 06/15/24 Rx release celecoxib 200 mg capsule 200 mg PO DAILY 30 days #30 caps 06/10/24 06/15/24 06/15/24 Rx oxycodone 5 mg tablet 5 - 10 mg (1 - 2 x 5 mg) PO Q4H 06/10/24 06/15/24 06/15/24 Rx PRN Moderate To Severe Pain 7 days #40 tabs ondansetron 8 mg disintegrating 8 mg PO Q8H PRN nausea and 06/14/24 06/15/24 Unknown Rx tablet vomiting #30 tabs Allergies Allergy/AdvReac Type Severity Reaction Status Date / Time aspirin Allergy Unknown Unknown,gi Verified 06/15/24 15:18 upset codeine Allergy Unknown Unknown Verified 06/15/24 15:18 hydrocodone Allergy Unknown Unknown Verified 06/15/24 15:18 Iodinated Contrast Media Allergy Unknown Unknown Verified 06/15/24 15:18 oxycodone Allergy Unknown Unknown Verified 06/15/24 15:18 atorvastatin [From Lipitor] Allergy Abdominal Verified 06/15/24 15:18 pain gabapentin Allergy ADR-Agitate Verified 06/15/24 15:18 d Current Medications Generic Name Dose Route Start Last Admin Trade Name Freq PRN Reason Stop Dose Admin Heparin Sodium/Sodium Chloride 25,000 unit in 500 mls @ 0 mls/hr 06/15/24 10:00 06/15/24 23:05 Heparin Drip IV 0 unit/kg/hr CONT TERRY 0 mls/hr Titration Protocol Per Protocol Sodium Chloride 1,000 mls @ 125 mls/hr 06/15/24 14:45 06/15/24 15:11 Sodium Chloride 0.9% IV 125 mls/hr .Q8H TERRY Administration Pantoprazole Sodium 40 mg/ 100 mls @ 20 mls/hr 06/15/24 21:15 06/15/24 22:45 Sodium Chloride IV 8 mg/hr .Q5H TERRY 20 mls/hr Administration 8 MG/HR PFSH Acute PFSH: Medical History Primary osteoarthritis of right hip No pertinent past medical history neghx:dm,thyroid,pe PCP: Sanjeev Richardson Abnormal nuclear stress test Atherosclerosis of coronary artery of [place] heart without angina pectoris History of DVT (deep vein thrombosis) History of non-ST elevation myocardial infarction (NSTEMI) Hyperlipidemia HTN (hypertension) Atherosclerosis Surgical History Status post trigger finger release Status post carpal tunnel release H/O coronary angiogram (~03/31/18) reports heart stent-- she is on plavix H/O breast biopsy (~1997) Right breast-- benign Hx of spinal surgery S/P hysterectomy (~1968) Exploratory laparotomy which resulted in ALEX. Ovaries spared. Performed in [place]. S/P knee replacement 2011--left knee 2012--right knee S/P cholecystectomy (~1969) S/P blepharoplasty S/P shoulder surgery (~2016) Dr. Suazo S/P cataract extraction Family History Brother Hypertension Diabetes Cancer Chronic kidney disease (CKD) Mother Lung disease Breast cancer Sister Colon cancer Denies family history of Ovarian cancer CAD (coronary artery disease) Clotting disorder Dementia Suicide Anesthesia complication Bleeding disorder Uterine cancer Stroke Social History Smoking and tobacco/nicotine status: never used tobacco/nicotine Second hand smoke exposure: No Alcohol intake: never Substance/Drug Use: never Vitals/I&O/Wt Last Vital Signs Temp 98.8 F 06/15/24 22:31 Pulse 98 06/15/24 22:31 Resp 26 H 06/15/24 22:31 BP 149/57 06/15/24 22:31 Pulse Ox 98 06/15/24 22:30 O2 Del Method Simple Mask 06/15/24 22:26 O2 Flow Rate 4 06/15/24 22:26 06/15/24 06/15/24 06/16/24 14:59 22:59 06:59 Intake Total 1050 / 1050 1996.988 / 3047.988 92.783 / 3140.771 Balance 1050 / 1050 1996.988 / 3047.988 92.783 / 3140.771 Weight last 48 hrs Weight 79.379 kg Physical Exam Narrative: Accompanied by her granddaughter. Const: COMMON NORMALS: patient oriented x3 and alert GENERAL APPEARANCE: cooperative ORIENTATION/CONSCIOUSNESS: Yes awake HENMT: COMMON NORMALS: oropharynx normal Neck/C-Spine: COMMON NORMALS: no JVD Resp: COMMON NORMALS: normal respiratory effort and clear to auscultation bilaterally AUSCULTATION: clear to auscultation bilaterally Cardio: COMMON NORMALS: no JVD, regular rhythm, S1 normal heart sound present, S2 normal heart sound present and No murmurs present (Cardio) RHYTHM: regular rhythm HEART SOUNDS: S1 normal heart sound present and S2 normal heart sound present GI: COMMON NORMALS: Normal to inspection, nondistended, normoactive bowel sounds present, Soft to palpation and non-tender PALPATION: Yes Soft to palpation Extremity: COMMON NORMALS: no joint enlargement and no pedal edema NARRATIVE EXTREMITY EXAM: Clean dressing on right hip wound without strikethrough, no surrounding swelling or erythema. No bruising or swelling of the right thigh. Neuro: COMMON NORMALS: patient oriented x3 and moves all extremities SENSORIUM/ORIENTATION: Yes alert Skin: COMMON NORMALS: no rashes or lesions noted GENERAL SKIN EXAM: no rashes or lesions noted Urinary Catheter Management: Roman: Cath Placed During This Visit: yes Reason for Continuing Indwelling Catheter: Accurate Measurement of Urinary Output in Critically Ill Patients Urinary Catheter Date of Insertion: 06/15/24 Data 06/15/24 20:59 06/15/24 09:03 Micro: Microbiology 06/15/24 09:03 Blood Culture - Preliminary Blood SPECIMEN COLLECTED 06/15/24 09:15 Blood Culture - Preliminary Blood SPECIMEN COLLECTED A&P Assessment and plan (1) Acute upper GI bleeding: Acute upper GI bleeding with major comorbidities with acute anemia, with demand ischemia versus type I NSTEMI, with hypoxic respiratory failure, hypotension, acute kidney injury, with gastric outlet obstruction and 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 With coffee-ground emesis, positive Gastroccult, melena, hemoglobin decline from 12 on 06/10 to 10.8 this morning to 8.612 hours later this evening. This morning with finding of PE with hypoxic respiratory failure initially started on heparin drip. Previously on aspirin VTE prophylaxis after right hip ENIO, celecoxib and tramadol. At baseline on Plavix due to history of CAD and prior stenting. Receiving RBC transfusion. Reviewed vitals, CBC, PTT, ABG, CMP, lactic acid, troponin series, UA, Gastroccult, EKG, chest x-ray, CT chest abdomen pelvis, ED physician note, discussed with ED physician. She is currently on Protonix drip, continue. Heparin drip had to be discontinued. Possible NSAID gastritis, hold and discontinue celecoxib. Aspirin VTE prophylaxis on hold. Baseline Plavix on hold. Would not resume and discontinue tramadol due to increasing risk of bleeding. Awaiting transfer to higher level care facility for definitive treatment, continue transfer arrangements underway. With delay in transfer reasonable to consider endoscopy for treatment with temporizing measures. Follow-up blood counts several hours after transfusion. (2) Pulmonary embolism: Initially on heparin drip which had to be discontinued with upper GI bleeding. Acute PE on CT chest in the right upper lobe, few tiny ones in the left subsegmental pulm arteries as well. Mild evidence of right heart strain. Assess with TTE. Discussed with ER physician and family, assess venous duplex ultrasound for any additional DVT. In case present consider IVC filter. Consider SCD DVT prophylaxis in case no DVT on ultrasound. (3) NSTEMI (non-ST elevated myocardial infarction): With very elevated troponin to baseline 1127, with downtrend to 710 at 2 hours and 785 at 6 hours. Reviewed troponin series, EKG, on my interpretation with T wave inversion in 1 and aVL. With prior CAD with stenting in RCA in 2018, and known stenosis of 50% and LCx and 50 to 60% in LAD seen at the same time. Plavix on hold due to UGIB. Metoprolol on hold due to initial hypotension. Statin on hold until can resume oral intake. Assess echocardiogram. Ischemia versus possible type I NM discussed with ER physician, patient and family. Currently not a candidate for intervention given acute ongoing bleeding. Will benefit from cardiology assessment once bleeding is under control. Monitor on telemetry with risk of arrhythmia. Continue to optimize hemodynamics. Blood transfusion maintain hemoglobin 8-9. 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 She is having pain across the mid abdomen. Noted high leukocytosis 27. Afebrile. Discussed with her and ER physician risk of ascending cholangitis with obstruction. She had received Zosyn earlier, will continue empirically for now as per discussion. Continued arrangements for treatment of upper GI bleed and evacuation of blood products. Check lipase. At risk of pancreatitis. Will assess right upper quadrant ultrasound. (5) Cholestasis: Right upper quadrant ultrasound, at risk of ampulla Vater obstruction syndrome. CBD dilation on CT. History of cholecystectomy. (6) Transaminitis: Likely secondary to obstructive changes as above, additionally hypotension on presentation. Check CK. Check hepatitis studies. Statin on hold for now. Repeat liver parameters. Discontinue and avoid NSAID. (7) Gastric outlet obstruction: As above. NGT decompression. PPI. Awaiting definitive treatment of UGIB. Zofran/Reglan as needed for nausea. (8) Acute kidney injury: Suspected prerenal with hypotension on presentation, also was receiving NSAID. Discontinue NSAID. Blood pressures were improved with resuscitation. Continue hemodynamic support. Receiving fluid challenge, continue, monitor for risk of fluid overload with IV fluid. No obstructive uropathy on CT. Reassess kidney function. (9) Status post total hip replacement, right: On 06/09. Wound appears without any bleeding, surrounding erythema or swelling. Plan CAD: Status post stenting of RCA in 2018, normal disease in LCx 50% stenosis and LAD 50-60% stenosis found at the same time. Plavix, statin, metoprolol on hold due to UGIB and hypotension on presentation. HTN : Hypotensive on presentation, antihypertensives for now. HLD: P.o. meds held for now. Resume statin once able to tolerate. Consult Attestations Time Spent in Patient Care: Continued hospitalization required for assessment of management of upper GI bleed with acute anemia, PE, NSTEMI, gastric outlet obstruction, ampulla Vater obstruction with possible below bladder syndrome, MARIE in a lady of advanced age with underlying CAD and other comorbidities. Coding Level of Care Code Critical Care >/= 30 minutes Critical care time (in minutes): 35 The high probability of a clinically significant, sudden or life threatening deterioration, as referenced in this documentation, required my full and direct attention, intervention and personal management. The critical care time shown is in addition to time spent performing any reported separately billable procedures and includes the following: [x] Data and vital sign review and interpretation [x] Patient assessment, examination and intervention [x] Medication orders and management [x] Patient/Family updates as able [x] Care Coordination and Documentation. 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
[2024-06-16 00:33] LABS: Partial Thromboplastin Time 61.8 SECONDS (23.9-36.7)
[2024-06-16 00:52] LABS: Lipase 805 U/L (13-60)
[2024-06-16 01:36] LABS: Creatine Phosphokinase 232 U/L (26-192)
[2024-06-16 01:56] LABS: Hepatitis A Antibody IgM Non-Reactive (Nonreactive); Hepatitis B Core IgM Non-Reactive (Nonreactive); Hepatitis B Surface Antigen Non-Reactive (Nonreactive); Hepatitis C Virus Antibody Non-Reactive (Nonreactive)
[2024-06-16] MEDS: sodium chloride 0.9% 1,000 ML 125 ML IV (02:18)
[2024-06-16] MEDS: piperacillin-tazobactam 3.375 GM in sodium chloride 0.9% (plus) 50 ML IV ×2 (03:49→09:04)
[2024-06-16 06:53] LABS: Basophils # 0.1 10^3/uL (0.0-0.1); Basophils % 0.2 %; Hematocrit 30.2 % (36-47); Lymphocytes # 1.4 10^3/uL (0.8-4.8); Lymphocytes % 5.2 %; Mean Corpuscular HGB Conc 32.8 g/dL (30-55); Mean Corpuscular Volume 91.5 fl (85-98); Mean Platelet Volume 11.6 fL (7.4-10.4); Monocytes # 1.2 10^3/uL (0.2-0.9); Monocytes % 4.2 %; Neutrophils # 24.17 10^3/uL (1.8-7.7); Neutrophils % 89.2 %; Nucleated Red Blood Cells # 0.3 /100WBC; Platelet Count 301 10^3/cmm (157-399); Red Cell Distribution Width 16.5 % (12.1-15.1); White Blood Count 27.12 10^3/uL (3.29-11.43)
--- NOTE | 2024-06-16 07:58 | PC.NURSE ---
THIS NURSE ASSUMED CARE AT 0700. PATIENT PLACED IN HOSPITAL BED AND MADE COMFORTABLE. NG TUBE PATENT WITH INTERMITTENT SUCTION RUNNING.
[2024-06-16 08:25] LABS: Alanine Aminotransferase 458 U/L (0-33); Albumin Level 2.9 g/dL (3.5-5.2); Alkaline Phosphatase 401 U/L (35-105); Blood Urea Nitrogen 34 mg/dL (8-23); Calcium 7.2 mg/dL (8.5-10.5); Carbon Dioxide 27 mmol/L (22-29); Chloride 102 mmol/L (98-107); Creatinine Clr Calc Pharmacy 40.2846; Globulin 2.5 g/dL (1.3-4.6); Glucose 133 mg/dL (65-115); Osmolality Calculated 302 mOsm/kg (285-295); Sodium 141 mmol/L (136-145); Total Bilirubin 0.8 mg/dL (0.15-1.2); Total Protein 5.4 g/dL (6.6-8.7)
[2024-06-16 08:39] LABS: Aspartate Amino Transferase 776 U/L (0-32)
[2024-06-16 08:40] LABS: Anion Gap 15.4 (5-19); Potassium 3.4 mmol/L (3.5-5.1)
[2024-06-16 09:40] LABS: Bacillus cereus group Not Detected (NOT DETECT); Bacillus subtillis group Not Detected (NOT DETECT); Corynebacterium Not Detected (NOT DETECT); Cutibacterium acnes (P.acnes) Not Detected (NOT DETECT); Enterococcus Not Detected (NOT DETECT); Enterococcus faecalis Not Detected (NOT DETECT); Enterococcus faecium Not Detected (NOT DETECT); Lactobacillus species Not Detected (NOT DETECT); Listeria Not Detected (NOT DETECT); Listeria monocytogenes Not Detected (NOT DETECT); Micrococcus Not Detected (NOT DETECT); Pan Candida Not Detected (NOT DETECT); Pan Gram-Negative Not Detected (NOT DETECT); Staphylococcus epidermidis Detected (NOT DETECT); Staphylococcus lugdunensis Not Detected (NOT DETECT); Staphylococcus species Detected (NOT DETECT); Streptococcus agalactiae Not Detected (NOT DETECT); Streptococcus anginosus group Not Detected (NOT DETECT); Streptococcus pneumoniae Not Detected (NOT DETECT); Streptococcus pyogenes Not Detected (NOT DETECT); Streptococcus species Not Detected (NOT DETECT); mecA Detected (NOT DETECT); mecC Not Detected (NOT DETECT)
[2024-06-16] MEDS: pantoprazole 40 MG in sodium chloride 0.9% (plus) 100 ML 20 MG IV (12:42)
[2024-06-16] MEDS: HYDROmorphone 1 mg/mL INJ 1 mL 0.5 MG IVP (12:51)
== END 2024-06-16 12:58 | disposition short-term general hospital (02) ==
PROVIDERS: Emergency Medicine; Internal Medicine; Emergency Provider Family Medicine; PCP Family Medicine
DX: A41.9 Sepsis, unspecified organism (principal); R65.21 Severe sepsis with septic shock; N17.9 Acute kidney failure, unspecified; I26.99 Other pulmonary embolism without acute cor pulmonale; K76.7 Hepatorenal syndrome; D64.9 Anemia, unspecified; K92.2 Gastrointestinal hemorrhage, unspecified; R79.89 Other specified abnormal findings of blood chemistry; I50.810 Right heart failure, unspecified; K56.7 Ileus, unspecified; J96.00 Acute respiratory failure, unspecified whether with hypoxia or hypercapnia; Z66 Do not resuscitate; Z79.01 Long term (current) use of anticoagulants; Z79.899 Other long term (current) drug therapy; Z96.649 Presence of unspecified artificial hip joint
CPT/HCPCS: 36415; 36430; 36600; 51702; 71045; 71275; 74177; 80051; 80053; 80074; 81001; 82271; 82330; 82550; 82805; 83605; 83690; 84484; 85025; 85730; 86850; 86900; 86920; 87040; 87077; 87150; 87186; 87205; 93005; 93306; 94640; 96365; 96366; 96367; 96375; 99291; 99292; J1170; J1200; J1644; J2270; J2405; J2470; J2543; J2919; J3370; J7030; J7050; P9016